=== PATIENT | male | born 1980 | race Caucasian/White ===

== ENCOUNTER 2020-01-24 07:59 | Outpatient (REF) | payer OTHER, SELFPAY ==
[2020-01-24 10:59] LABS: Cholesterol 230 mg/dL; Glucose Fasting 93 mg/dL (60-99); HDL Cholesterol 49 mg/dL; LDL Cholesterol Calculated 164 mg/dl; Triglycerides 86 mg/dL
== END 2020-01-24 08:00 | disposition home or self-care (01) ==
LOC: HO.10HDL 07:59
PROVIDERS: Visit Provider Family Medicine
DX: E78.00 Pure hypercholesterolemia, unspecified (principal); R73.9 Hyperglycemia, unspecified
CPT/HCPCS: 80061; 82947

== ENCOUNTER 2021-04-09 19:41 | Emergency (ER) | payer OTHER, SELFPAY ==
[2021-04-09 19:48] VITALS: BP 132/70; PULSE 68; O2SAT 99
[2021-04-09 20:24] VITALS: BP 135/80; PULSE 80; RESP 18; TEMP 36.9; O2SAT 97; BMI 23.6
--- NOTE | 2021-04-09 20:30 | PC.NURSE ---
pt was given zofran by em[facility]
== END 2021-04-09 21:22 | disposition left against medical advice (07) ==
PROVIDERS: Emergency Provider Emergency Medicine
DX: R10.9 Unspecified abdominal pain (principal); R11.2 Nausea with vomiting, unspecified
CPT/HCPCS: 99282; 99283

== ENCOUNTER 2021-04-11 09:16 | Emergency (ER) | payer OTHER, SELFPAY ==
[2021-04-11 09:35] VITALS: BP 148/93; PULSE 63; RESP 17; TEMP 36.6; O2SAT 98; BMI 24.3
[2021-04-11] MEDS: Ondansetron ODT 4 MG TAB.RAPDIS TRANSLINGU (09:40)
[2021-04-11 11:13] VITALS: BP 143/95; PULSE 55; RESP 16; TEMP 36.5; O2SAT 99
[2021-04-11 11:30] LABS: MANUAL DIFF FLAG NO
[2021-04-11 11:34] LABS: Basophils Percent Auto 0.3 % (0-2); Eosinophils Percent Auto 0.1 % (0-4); Imm Gran Abs Auto 0.05 X10*3/uL (0.00-0.03); Imm Gran Pct Auto 0.4 % (0.0-0.4); Lymphocytes Absolute Auto 0.7 X10*3/uL (1.2-4.9); Lymphocytes Percent Auto 5.6 % (20-40); Mean Corpuscular HGB Conc 34.8 g/dl (31.0-36.0); Mean Corpuscular Hemoglobin 29.9 pg (27.0-33.0); Mean Corpuscular Volume 85.8 fL (80.0-98.0); Mean Platelet Volume 8.8 fL (9.4-12.4); Monocytes Absolute Auto 0.7 X10*3/uL (0.1-1.2); Monocytes Percent Auto 5.3 % (2-11); Neutrophils Absolute Auto 11.7 x10*3/uL (2.0-8.3); Neutrophils Percent Auto 88.3 % (45-73); Platelet Count 250 X10*3/uL (160-400); Red Blood Count 5.36 X10*6/uL (4.60-5.80); Red Cell Distribution Width 12.3 % (11.0-16.0); White Blood Count 13.3 X10*3/uL (4.8-10.8)
--- NOTE | 2021-04-11 11:37 | PC.NURSE ---
a&ox3, vomiting/nausea since friday, no prior hx of similar issue, weakness, chills, headache, abd/esophagus pain (06/26), paper roll machine operator applied, NSR, 20G IV placed right forearm, labs drawn. pending lab results, will continue to monitor.
--- NOTE | 2021-04-11 11:47 | ED_ITS ---
HPI - Nausea/Vomiting/Diarrhea General Chief complaint: Nausea/Vomiting/Diarrhea Stated complaint: Vomiting Time Seen by Provider: 04/11/21 10:42 Source: patient Mode of arrival: ambulatory History of Present Illness HPI Narrative: 40-year-old male with no significant past medical history presenting to the ED complaining of persistent nausea, vomiting/retching x3 days with inability to tolerate p.o. Reports associated abdominal wall soreness from retching. Denies suspicious food intake, fever, chills, dysuria/hematuria, recent travel, flank pain, illicit drug or ETOH use MD elicited complaint: nausea, vomiting and abdominal pain Onset (ago): day(s) Related Data Previous Rx's Medication Instructions Recorded aluminum-mag hydroxide-simethicone 5 ml PO 5XD PRN #30 ml 04/11/21 200 mg-200 mg-20 mg/5 mL oral susp (Maalox Advanced) famotidine 20 mg tablet (Pepcid) 20 mg PO DAILY #14 tab 04/11/21 ondansetron 4 mg disintegrating 4 mg PO Q8H PRN #10 tab 04/11/21 tablet Allergies Allergy/AdvReac Type Severity Reaction Status Date / Time No Known Allergies Allergy Unknown Verified 04/09/21 20:23 Review of Systems Review of Systems: Constitutional: No Fever, No Chills,No Fatigue, No Malaise ENT/Mouth: No Ear Pain, No Nasal Congestion, No sore throat, No Rhinorrhea, No Swallowing Difficulty Eyes: No Eye Pain, No Swelling, No Redness Cardiovascular: No Chest Pain, No SOB, No Dyspnea on Exertion, No Edema, No Palpitations Respiratory: No Cough, No Sputum, No Dyspnea Gastrointestinal: + Nausea, + Vomiting, No Diarrhea, No Constipation, + Abdominal pain Genitourinary: No irregular bleeding, No Dysuria, No Urinary Frequency, No Hematuria, No Urgency, No Flank Pain, No Urinary Flow Changes Musculoskeletal: No joint pain, No Myalgias, No Joint Swelling Skin: No Skin Lesions, No rash Neuro: No Weakness, No Numbness, No Dizziness, No Headache Yes all other systems are reviewed and are negative [facility] Past Medical History Attestation statement: The following information was validated with the patient. Medical History No pertinent past medical history Social History Social History Patient Tobacco Use Status: Current everyday Tobacco user Smoked in Last 30 Days: Yes Use of substances other than those prescribed or required for medical reasons: Yes Substance Use Type: Heroin and Marijuana Substance Use Type Other:: Formerly used heroin, hasn't used for 3 yrs, smokes marijuana Substance Use Frequency: Daily Last Used Substance: Just Prior to Admission Any prior treatment program specific to substance use: Yes (Yes, previously been to treatment center.) Advance Directives: No Advance Directives Information Provided: No Physical Exam Vital Signs: Vital Signs: Last Vital Signs Temp 98.3 F 04/11/21 16:00 Pulse 59 04/11/21 16:00 Resp 16 04/11/21 16:00 BP 145/85 H 04/11/21 16:00 Pulse Ox 97 04/11/21 16:00 BMI result Body Mass Index 24.3 Const: General: cooperative, healthy appearing, no acute distress, alert and awake Orientation/consciousness: patient oriented x3 Limitations: no limitations HENMT: Head: Yes normal to inspection and Yes atraumatic Ears: hearing grossly normal bilaterally General nose exam: Normal external nose present Face and sinus: Yes normal facial exam Eyes: General: appearance normal, both eyes and all related structures EOM: EOMs intact bilaterally Neck: Neck: Yes normal visual inspection and Yes no meningeal signs Resp: Effort & Inspection: normal respiratory effort and no respiratory distress Auscultation: clear to auscultation bilaterally Cardio: Rate: regular rate Heart sounds: S1 normal heart sound present and S2 normal heart sound present GI: Inspection: Yes normal to inspection Palpation (GI): Soft to palpation, nontender, no guarding and not rigid : General: Yes no CVA tenderness Back/Spine/Pelvis: Back: no CVA tenderness Skin: Rashes: no rashes Wounds: no wounds Neuro: General: patient oriented x3 and no meningeal signs Gait exam (Neuro): Normal gait present Extrem: General: Yes normal to inspection Course Course Course Narrative: -1202--mild leukocytosis of 13.3 > likely reactive from nausea/vomiting. BUN elevated to 24 likely from dehydration -AST/ ALT mildly elevated -1255--UA with greater than 80 ketones/not infected. Tox screen positive for THC. On re-evaluation patient reports symptomatic improvement, tolerating p.o. apple juice, will try cracker/Gingre pedro and re-evaluate -1358--patient tolerated p.o. cracker however followed by episode of emesis. IM Haldol ordered -1556--on re-evaluation patient reports symptomatic improvement in, admits to mild persistent nausea. Tolerated p.o. crackers without emesis. Discussed disposition, patient does feel safer DC home, will give p.o. Bentyl, IV Zofran and Toradol, re-evaluated and plan for discharge -1640--on re-evaluation patient reports symptomatic improvement, no nausea or vomiting at present. Plan for DC home MDM - Nausea/Vomiting/Diarrhea MDM Narrative Medical decision making narrative: 40-year-old male with no significant past medical history presenting to the ED complaining of persistent nausea, vomiting/retching x3 days with inability to tolerate p.o. on exam vital signs stable, NAD/nontoxic appearing, abdomen s oft/nontender, no rebound or guarding, no CVAT. Concern for cyclical vomiting vs gastroenteritis/food poisoning vs colitis. Rule out metabolic abnormalities Plan: Labs, UA, IVF, symptomatic remedies, p.o. challenge, re-evaluate Differential Diagnosis Differential diagnosis: Likely food poisoning, gastroenteritis, drug-induced nausea and vomiting and dehydration Medical Records Attestation: I reviewed the patient's medical records. Lab Data Attestation: I reviewed the patient's lab results. Result diagrams: 04/11/21 11:27 04/11/21 11:27 Labs: Lab Results 04/11/21 04/11/21 04/11/21 Range/Units 11:27 11:27 11:27 WBC 13.3 H (4.8-10.8) X10*3/uL RBC 5.36 (4.60-5.80) X10*6/uL Hgb 16.0 (14.0-18.0) g/dl Hct 46.0 (42.0-52.0) % MCV 85.8 (80.0-98.0) fL MCH 29.9 (27.0-33.0) pg MCHC 34.8 (31.0-36.0) g/dl RDW 12.3 (11.0-16.0) % Plt Count 250 (160-400) X10*3/uL MPV 8.8 L (9.4-12.4) fL Immature Gran % (Auto) 0.4 (0.0-0.4) % Neut % (Auto) 88.3 H (45-73) % Lymph % (Auto) 5.6 L (20-40) % [place] % (Auto) 5.3 (2-11) % Eos % (Auto) 0.1 (0-4) % Baso % (Auto) 0.3 (0-2) % Lymph # (Auto) 0.7 L (1.2-4.9) X10*3/uL [place] # (Auto) 0.7 (0.1-1.2) X10*3/uL Eos # (Auto) 0.0 (0.0-0.4) X10*3/uL Baso # (Auto) 0.0 (0.0-0.2) X10*3/uL Abs Immat Gran (auto) 0.05 H (0.00-0.03) X10*3/uL Absolute Neuts (auto) 11.7 H (2.0-8.3) x10*3/uL Absolute Nucleated RBC 0.000 (0.0-0.012) X10*3/uL Nucleated RBC % (auto) 0.0 (0.0-0.2) /100WBC Sodium 136 (135-145) mmol/L Potassium 4.4 (3.3-5.1) mmol/L Chloride 95 L (96-108) mmol/L Carbon Dioxide 30 H (22-29) mmol/L Anion Gap 15 (12-20) BUN 24 H (9-16) mg/dL Creatinine 1.21 (0.5-1.4) mg/dL Estim Creat Clear Calc 82.7 Estimated GFR > 60 Random Glucose 135 H (60-115) mg/dL Calcium 10.4 H (8.4-10.2) mg/dL Magnesium 2.1 (1.6-2.6) mg/dL Total Bilirubin 1.4 H (0.0-1.0) mg/dL Direct Bilirubin 0.4 (0.0-0.5) mg/dL AST 38 H (5-37) U/L ALT 47 H (0-40) U/L Alkaline Phosphatase 77 (39-117) U/L Total Protein 7.9 (6.5-8.0) g/dL Albumin 4.9 (3.5-5.0) g/dL Lipase 21 (8-78) U/L Urine Color Urine Appearance Urine pH (5.0-8.0) Ur Specific [place] (1.005-1.025) Urine Protein (NEG-TRACE) MG/DL Urine Glucose (UA) (NEG) MG/DL Urine Ketones (NEG) MG/DL Urine Blood (NEG) Urine Nitrite (NEG) Ur Leukocyte Esterase (NEG) Urine Opiates Screen (Not Detect) Urine Fentanyl Screen (Not Detect) Ur Barbiturates Screen (Not Detect) Ur Phencyclidine Scrn (Not Detect) Ur Amphetamines Screen (Not Detect) U Benzodiazepines Scrn (Not Detect) Urine Cocaine Screen (Not Detect) U Marijuana (THC) Screen (Not Detect) COVID-19 (RED) Negative (Negative) COVID-19 Clin Com See Note 04/11/21 04/11/21 Range/Units 12:06 12:06 WBC (4.8-10.8) X10*3/uL RBC (4.60-5.80) X10*6/uL Hgb (14.0-18.0) g/dl Hct (42.0-52.0) % MCV (80.0-98.0) fL MCH (27.0-33.0) pg MCHC (31.0-36.0) g/dl RDW (11.0-16.0) % Plt Count (160-400) X10*3/uL MPV (9.4-12.4) fL Immature Gran % (Auto) (0.0-0.4) % Neut % (Auto) (45-73) % Lymph % (Auto) (20-40) % [place] % (Auto) (2-11) % Eos % (Auto) (0-4) % Baso % (Auto) (0-2) % Lymph # (Auto) (1.2-4.9) X10*3/uL [place] # (Auto) (0.1-1.2) X10*3/uL Eos # (Auto) (0.0-0.4) X10*3/uL Baso # (Auto) (0.0-0.2) X10*3/uL Abs Immat Gran (auto) (0.00-0.03) X10*3/uL Absolute Neuts (auto) (2.0-8.3) x10*3/uL Absolute Nucleated RBC (0.0-0.012) X10*3/uL Nucleated RBC % (auto) (0.0-0.2) /100WBC Sodium (135-145) mmol/L Potassium (3.3-5.1) mmol/L Chloride (96-108) mmol/L Carbon Dioxide (22-29) mmol/L Anion Gap (12-20) BUN (9-16) mg/dL Creatinine (0.5-1.4) mg/dL Estim Creat Clear Calc Estimated GFR Random Glucose (60-115) mg/dL Calcium (8.4-10.2) mg/dL Magnesium (1.6-2.6) mg/dL Total Bilirubin (0.0-1.0) mg/dL Direct Bilirubin (0.0-0.5) mg/dL AST (5-37) U/L ALT (0-40) U/L Alkaline Phosphatase (39-117) U/L Total Protein (6.5-8.0) g/dL Albumin (3.5-5.0) g/dL Lipase (8-78) U/L Urine Color YELLOW Urine Appearance CLEAR Urine pH 7.5 (5.0-8.0) Ur Specific [place] 1.020 (1.005-1.025) Urine Protein TRACE (NEG-TRACE) MG/DL Urine Glucose (UA) NEG (NEG) MG/DL Urine Ketones >=80 (NEG) MG/DL Urine Blood NEG (NEG) Urine Nitrite NEG (NEG) Ur Leukocyte Esterase NEG (NEG) Urine Opiates Screen Not Detected (Not Detect) Urine Fentanyl Screen Not Detected (Not Detect) Ur Barbiturates Screen Not Detected (Not Detect) Ur Phencyclidine Scrn Not Detected (Not Detect) Ur Amphetamines Screen Not Detected (Not Detect) U Benzodiazepines Scrn Not Detected (Not Detect) Urine Cocaine Screen Not Detected (Not Detect) U Marijuana (THC) Screen POSITIVE H (Not Detect) COVID-19 (RED) (Negative) COVID-19 Clin Com Discharge Plan Discharge Clinical Impression: Cyclical vomiting Patient Disposition: Home, Self-Care Instructions: Acute Nausea and Vomiting (ED) Additional Instructions: Your blood work shows mild elevation in her liver enzymes. Her symptoms are likely from marijuana use, you should refrain from using THC Zofran as an antinausea medication, take as needed Pepcid and Maalox will help with acid reduction Please stay hydrated at home. If symptoms persist or worsen, you have unbearable pain/nausea, continued nausea and vomiting with inability to tolerate food or liquid foods return to the emergency department Please follow-up with your doctor Prescriptions: New famotidine [Pepcid] 20 mg tablet 20 mg PO DAILY Qty: 14 0RF alum-mag hydroxide-simeth [Maalox Advanced] 200-200-20 mg/5 mL suspension 5 ml PO 5XD PRN (Reason: dyspepsia) Qty: 30 0RF Rx Instructions: administer between meals and at bedtime ondansetron 4 mg tablet,disintegrating 4 mg PO Q8H PRN (Reason: nausea and vomiting) Qty: 10 0RF Referrals: Ryan lEy [Physician] - 1 week Chris Ordoñez MD [Primary Care Provider] - 2 days
[2021-04-11 11:48] LABS: Alanine Aminotransferase 47 U/L (0-40); Albumin Level 4.9 g/dL (3.5-5.0); Alkaline Phosphatase 77 U/L (39-117); Anion Gap 15 (12-20); Aspartate Amino Transferase 38 U/L (5-37); Bilirubin Direct 0.4 mg/dL (0.0-0.5); Bilirubin Total 1.4 mg/dL (0.0-1.0); Blood Urea Nitrogen 24 mg/dL (9-16); COVID-19 Test Negative (Negative); Calcium 10.4 mg/dL (8.4-10.2); Carbon Dioxide 30 mmol/L (22-29); Chloride 95 mmol/L (96-108); Creatinine Clr Calc Pharmacy 82.7; Estimated Glomerular Filt Rate > 60; Glucose Random 135 mg/dL (60-115); Lipase 21 U/L (8-78); Magnesium 2.1 mg/dL (1.6-2.6); Potassium 4.4 mmol/L (3.3-5.1); Sodium 136 mmol/L (135-145); Total Protein 7.9 g/dL (6.5-8.0)
[2021-04-11] MEDS: Magnesium Hydrox/Alum Hydrox 30 ML ORAL.SUSP PO (11:59)
[2021-04-11] MEDS: Lidocaine HCl Viscous 2 % 15 ML SOLUTION MUCOUS MEM (11:59)
[2021-04-11] MEDS: 0.9 % Sodium Chloride 1,000 ML 999 ML IV ×2 (11:59→12:49)
[2021-04-11] MEDS: diphenhydrAMINE HCL 50 MG/ML VIAL 25 MG IVPUSH (11:59)
[2021-04-11] MEDS: Famotidine/PF 20 MG/2 ML VIAL IVPUSH (12:00)
[2021-04-11] MEDS: Metoclopramide HCl 10 MG/2 ML VIAL IVPUSH (12:00)
[2021-04-11 12:02] VITALS: BP 143/95; PULSE 73; RESP 16; O2SAT 99
[2021-04-11 12:22] LABS: Appearance Urine CLEAR; Color Urine YELLOW; Glucose Urine UA NEG (NEG); Leukocyte Esterase Urine NEG (NEG); Nitrite Urine NEG (NEG); PH 7.5 (5.0-8.0); Urine Blood NEG (NEG); Urine Ketones >=80 MG/DL (NEG); Urine Protein TRACE MG/DL (NEG-TRACE)
[2021-04-11 12:30] LABS: Amphetamine Screen Urine Not Detected (Not Detect); Barbiturates, Urine Not Detected (Not Detect); Benzodiazepines Screen Urine Not Detected (Not Detect); Cannabinoid Screen Urine POSITIVE (Not Detect); Cocaine Screen Urine Not Detected (Not Detect); Fentanyl, urine Not Detected (Not Detect); Opiate Screen Urine Not Detected (Not Detect); Phencyclidine Screen Urine Not Detected (Not Detect)
--- NOTE | 2021-04-11 12:48 | PC.NURSE ---
nausea improved w meds, pain decreased to 2/10, medicated per provider order, NSR on monitor.
[2021-04-11 14:00] VITALS: BP 132/96; PULSE 51; RESP 16; O2SAT 99
[2021-04-11] MEDS: Haloperidol Lactate 5 MG/ML VIAL IM (14:30)
--- NOTE | 2021-04-11 14:35 | PC.NURSE ---
Pt continues to vomit, medicated as charted. States pain currently 5/10, sinus mariama on tele. Fluids continues to infuse.
[2021-04-11 16:00] VITALS: BP 145/85; PULSE 59; RESP 16; TEMP 36.8; O2SAT 97
[2021-04-11] MEDS: Dicyclomine HCl 10 MG CAPSULE 20 MG PO (16:19)
[2021-04-11] MEDS: ondansetron HCL 4 MG/2 ML VIAL IVPUSH (16:20)
[2021-04-11] MEDS: Ketorolac Tromethamine 15 MG/ML VIAL IVPUSH (16:21)
== END 2021-04-11 17:04 | disposition home or self-care (01) ==
PROVIDERS: Physician Assistant; Emergency Provider Internal Medicine; PCP Family Medicine
DX: R11.15 Cyclical vomiting syndrome unrelated to migraine (principal); F12.90 Cannabis use, unspecified, uncomplicated; R10.9 Unspecified abdominal pain; Z20.822 Contact with and (suspected) exposure to COVID-19; F17.200 Nicotine dependence, unspecified, uncomplicated
CPT/HCPCS: 36415; 80048; 80076; 80307; 81003; 83690; 83735; 85025; 87635; 96361; 96372; 96374; 96375; 96376; 99284; 99285; J1200; J1885; J2405; J2765

== ENCOUNTER 2022-01-22 08:50 | Outpatient (REF) | payer OTHER, SELFPAY ==
[2022-01-22 12:29] LABS: Alanine Aminotransferase 24 U/L (0-40); Albumin Level 4.2 g/dL (3.5-5.0); Alkaline Phosphatase 70 U/L (39-117); Aspartate Amino Transferase 26 U/L (5-37); Bilirubin Direct 0.2 mg/dL (0.0-0.5); Bilirubin Total 0.7 mg/dL (0.0-1.0); Calcium 9.6 mg/dL (8.4-10.2); Cholesterol 216 mg/dL; Glucose Fasting 95 mg/dL (60-99); HDL Cholesterol 43 mg/dL; LDL Cholesterol Calculated 148 mg/dl; Total Protein 6.9 g/dL (6.5-8.0); Triglycerides 126 mg/dL
== END 2022-01-22 08:51 | disposition home or self-care (01) ==
LOC: HO.10HDL 08:50
PROVIDERS: Visit Provider Family Medicine
DX: E78.00 Pure hypercholesterolemia, unspecified (principal); R73.9 Hyperglycemia, unspecified; E83.52 Hypercalcemia
CPT/HCPCS: 36415; 80061; 80076; 82310; 82947

== ENCOUNTER 2022-07-11 05:38 | Emergency (ER) | payer OTHER, SELFPAY ==
[2022-07-11 05:39] VITALS: BP 146/92; PULSE 53; RESP 18; TEMP 36.1; O2SAT 99; BMI 21.7
--- NOTE | 2022-07-11 07:23 | ED.NAVMDI ---
HPI - Nausea/Vomiting/Diarrhea General Chief complaint: Nausea/Vomiting/Diarrhea Stated complaint: vomiting Time Seen by Provider: 07/11/22 07:23 Source: patient Mode of arrival: ambulatory Limitations: no limitations History of Present Illness HPI Narrative: 41 yo male with history of substance abuse on Suboxone, marijuana use who presents to the ER for evaluation of nausea and vomiting for the last 2 days. He denies any associated abdominal pain but has an upset stomach and decreased appetite. He states whenever he tries to eat or drink anything it comes back up. He denies any diarrhea. No known sick contacts or food bourne illness exposures. He lives with his significant other who does not have any symptoms. He states he frequently uses marijuana but has no history of cyclical vomiting. He has been able to take his Suboxone during the last couple of days. He is a former drinker, no current alcohol use. MD elicited complaint: nausea and vomiting Onset (ago): day(s) (2) Related Data Previous Rx's Medication Instructions Recorded aluminum-mag hydroxide-simethicone 5 ml PO 5XD PRN dyspepsia #30 mL 04/11/21 200 mg-200 mg-20 mg/5 mL oral susp (Maalox Advanced) famotidine 20 mg tablet (Pepcid) 20 mg PO DAILY #14 tabs 04/11/21 ondansetron 4 mg disintegrating 4 mg PO Q8H PRN nausea and 04/11/21 tablet vomiting #10 tabs prochlorperazine maleate 10 mg 10 mg PO Q8H PRN nausea and 07/11/22 tablet (Compazine) vomiting #10 tabs Allergies Allergy/AdvReac Type Severity Reaction Status Date / Time No Known Allergies Allergy Unknown Verified 04/09/21 20:23 [facility] Past Medical History Medical History No pertinent past medical history Social History Social History Alcohol intake: never Patient Tobacco Use Status: Current everyday Tobacco user Smoked in Last 30 Days: No Use of substances other than those prescribed or required for medical reasons: No Substance Use Type: Heroin and Marijuana Advance Directives: No Advance Directives Information Provided: No Physical Exam Vital Signs: Vital Signs: Last Vital Signs Temp 97 F 07/11/22 05:39 Pulse 114 H 07/11/22 08:39 Resp 18 07/11/22 08:39 BP 155/99 H 07/11/22 08:39 Pulse Ox 99 07/11/22 08:39 O2 Del Method Room Air 07/11/22 08:39 BMI result Body Mass Index 21.7 Appearance: Alert. Oriented X3. No acute distress. Head: normocephalic, atraumatic. Eyes: Pupils equal, round and reactive to light. ENT: Pharynx with dry mucous membranes. No tonsillar swelling or exudate. Neck: Normal inspection. Neck supple. CVS: Normal heart rate and rhythm. Pulses normal. Respiratory: No respiratory distress. Breath sounds normal. Abdomen: Soft with mild epigastric tenderness, negative Castanon sign.. +BS x4 Skin: Skin warm and dry. Normal skin color. Normal skin turgor. No rashes. Extremities: No lower extremity edema. No joint swelling. Neuro/psych: Oriented X 3. No motor deficit. No sensory deficit. CN II-XII intact. Normal speech and cognition. Steady gait Course Reevaluation(s) Reevaluation #1: Patient dry heaving after receiving Zofran. Additional IV fluids and antiemetics have been ordered. Lab workup is essentially unremarkable, urinalysis is pending. Time: 09:05 Reevaluation #2: Patient positive for marijuana. He is feeling much better after Compazine. He is tolerating cordell pedro. At this time is stable for discharge home with antiemetics, supportive care, cessation of marijuana use. Patient agrees with plan. Stable for discharge. Time: 11:15 Medications Administered Discontinued Medications Generic Name Dose Route Start Last Admin Trade Name Freq PRN Reason Stop Dose Admin Sodium Chloride 1,000 mls @ 999 mls/hr 07/11/22 07:30 07/11/22 08:53 Ns IVCONT 07/11/22 08:30 Infused .Q1H1M EMELY Infusion Sodium Chloride 1,000 mls @ 999 mls/hr 07/11/22 08:45 07/11/22 10:05 Ns IVCONT 07/11/22 09:45 Infused .Q1H1M EMELY Infusion Ondansetron HCl 4 mg 07/11/22 07:23 07/11/22 07:58 Ondansetron Hcl 4 Mg/2 Ml Vial IVPUSH 07/11/22 07:24 4 mg ONCE ONE Administration Prochlorperazine Edisylate 10 mg 07/11/22 08:43 07/11/22 08:53 Prochlorperazine Edisylate 10 Mg/2 Ml Vial IVPUSH 07/11/22 08:44 10 mg ONCE ONE Administration Medical Decision Making Medical Decision Making [facility] Narrative: 41-year-old male with history of substance abuse on Suboxone, marijuana use who is presenting to the ER for evaluation of nausea and vomiting for the last 2 days, unable to tolerate any p.o.. No abdominal pain just upset stomach. He does have mild epigastric tenderness on exam, likely gastritis. His lab work today is unremarkable, mild leukocytosis likely reactive due to vomiting. His lipase and LFTs are normal. His U tox was positive for marijuana. Could be experiencing cyclical vomiting verses a gastroenteritis however he has no diarrhea. He was counseled on his results, recommendation of cessation of marijuana. He was given 2 L of IV fluids and eventually able to tolerate p.o. after several hours of resuscitation and supportive care in the ER. Patient comfortable discharge home and return precautions were discussed. Differential Diagnosis Differential Diagnoses: The differential diagnosis associated with the presentation includes Viral gastroenteritis, bacterial gastroenteritis, cyclical vomiting, bowel obstruction, pancreatitis Admission/Observation Consideration of admission/observation: Escalation of care including admission/observation considered multiple doses of antiemetics and 2 L of IV fluids for required Lab Data [facility] Lab Attestation statement: I reviewed the patient's lab results. 07/11/22 07:24 07/11/22 07:24 Labs: Lab Results 07/11/22 07/11/22 07/11/22 Range/Units 07:24 07:24 09:37 WBC 11.9 H (4.8-10.8) X10*3/uL RBC 5.72 (4.60-5.80) X10*6/uL Hgb 15.5 (14.0-18.0) g/dl Hct 46.6 (42.0-52.0) % MCV 81.5 (80.0-98.0) fL MCH 27.1 (27.0-33.0) pg MCHC 33.3 (31.0-36.0) g/dl RDW 14.1 (11.0-16.0) % Plt Count 316 D (160-400) X10*3/uL MPV 8.7 L (9.4-12.4) fL Immature Gran % (Auto) 0.3 (0.0-0.4) % Neut % (Auto) 83.9 H (45-73) % Lymph % (Auto) 11.4 L (20-40) % [facility] % (Auto) 3.8 (2-11) % Eos % (Auto) 0.3 (0-4) % Baso % (Auto) 0.3 (0-2) % Lymph # (Auto) 1.4 (1.2-4.9) X10*3/uL [facility] # (Auto) 0.5 (0.1-1.2) X10*3/uL Eos # (Auto) 0.0 (0.0-0.4) X10*3/uL Baso # (Auto) 0.0 (0.0-0.2) X10*3/uL Abs Immat Gran (auto) 0.04 H (0.00-0.03) X10*3/uL Absolute Neuts (auto) 10.0 H (2.0-8.3) x10*3/uL Absolute Nucleated RBC 0.000 (0.0-0.012) X10*3/uL Nucleated RBC % (auto) 0.0 (0.0-0.2) /100WBC Sodium 139 (135-145) mmol/L Potassium 4.2 (3.3-5.1) mmol/L Chloride 101 (96-108) mmol/L Carbon Dioxide 27 (22-29) mmol/L Anion Gap 15 (12-20) BUN 19 H (9-16) mg/dL Creatinine 0.97 (0.5-1.4) mg/dL Estim Creat Clear Calc 104.9 Estimated GFR > 60 Random Glucose 142 H (60-115) mg/dL Calcium 9.9 (8.4-10.2) mg/dL Total Bilirubin 0.9 (0.0-1.0) mg/dL Direct Bilirubin 0.2 (0.0-0.5) mg/dL AST 16 (5-37) U/L ALT 15 (0-40) U/L Alkaline Phosphatase 91 (39-117) U/L Total Protein 8.0 (6.5-8.0) g/dL Albumin 4.8 (3.5-5.0) g/dL Lipase 19 (8-78) U/L Urine Color Yellow Urine Appearance Cloudy Urine pH 7.5 (5.0-9.0) Ur Specific [place] >= 1.030 H (1.005-1.025) Urine Protein 30 (1+) H (Neg-Trace) mg/dL Urine Glucose (UA) Negative (Negative) mg/dL Urine Ketones 40 (Negative) mg/dL Urine Blood Negative (Negative) Urine Nitrite Negative (Negative) Ur Leukocyte Esterase Negative (Negative) Urine RBC 3-5 H (0-2) /HPF Urine WBC 0-5 (0-5) /HPF Ur Squamous Epith Cells 0-2 (0-2) /HPF Urine Bacteria None Seen (None Seen) Hyaline Casts 0-2 (0-2) /LPF Urine Opiates Screen (Not Detect) Urine Fentanyl Screen (Not Detect) Ur Barbiturates Screen (Not Detect) Ur Phencyclidine Scrn (Not Detect) Ur Amphetamines Screen (Not Detect) U Benzodiazepines Scrn (Not Detect) Urine Cocaine Screen (Not Detect) U Marijuana (THC) Screen (Not Detect) 07/11/22 Range/Units 09:37 WBC (4.8-10.8) X10*3/uL RBC (4.60-5.80) X10*6/uL Hgb (14.0-18.0) g/dl Hct (42.0-52.0) % MCV (80.0-98.0) fL MCH (27.0-33.0) pg MCHC (31.0-36.0) g/dl RDW (11.0-16.0) % Plt Count (160-400) X10*3/uL MPV (9.4-12.4) fL Immature Gran % (Auto) (0.0-0.4) % Neut % (Auto) (45-73) % Lymph % (Auto) (20-40) % [facility] % (Auto) (2-11) % Eos % (Auto) (0-4) % Baso % (Auto) (0-2) % Lymph # (Auto) (1.2-4.9) X10*3/uL [facility] # (Auto) (0.1-1.2) X10*3/uL Eos # (Auto) (0.0-0.4) X10*3/uL Baso # (Auto) (0.0-0.2) X10*3/uL Abs Immat Gran (auto) (0.00-0.03) X10*3/uL Absolute Neuts (auto) (2.0-8.3) x10*3/uL Absolute Nucleated RBC (0.0-0.012) X10*3/uL Nucleated RBC % (auto) (0.0-0.2) /100WBC Sodium (135-145) mmol/L Potassium (3.3-5.1) mmol/L Chloride (96-108) mmol/L Carbon Dioxide (22-29) mmol/L Anion Gap (12-20) BUN (9-16) mg/dL Creatinine (0.5-1.4) mg/dL Estim Creat Clear Calc Estimated GFR Random Glucose (60-115) mg/dL Calcium (8.4-10.2) mg/dL Total Bilirubin (0.0-1.0) mg/dL Direct Bilirubin (0.0-0.5) mg/dL AST (5-37) U/L ALT (0-40) U/L Alkaline Phosphatase (39-117) U/L Total Protein (6.5-8.0) g/dL Albumin (3.5-5.0) g/dL Lipase (8-78) U/L Urine Color Urine Appearance Urine pH (5.0-9.0) Ur Specific [place] (1.005-1.025) Urine Protein (Neg-Trace) mg/dL Urine Glucose (UA) (Negative) mg/dL Urine Ketones (Negative) mg/dL Urine Blood (Negative) Urine Nitrite (Negative) Ur Leukocyte Esterase (Negative) Urine RBC (0-2) /HPF Urine WBC (0-5) /HPF Ur Squamous Epith Cells (0-2) /HPF Urine Bacteria (None Seen) Hyaline Casts (0-2) /LPF Urine Opiates Screen Not Detected (Not Detect) Urine Fentanyl Screen Not Detected (Not Detect) Ur Barbiturates Screen Not Detected (Not Detect) Ur Phencyclidine Scrn Not Detected (Not Detect) Ur Amphetamines Screen Not Detected (Not Detect) U Benzodiazepines Scrn Not Detected (Not Detect) Urine Cocaine Screen Not Detected (Not Detect) U Marijuana (THC) Screen POSITIVE H (Not Detect) Independent Historian Clinical information obtained from an independent historian. History obtained from or confirmed by: Spouse External Record Review External record reviewed: Outpatient record, Prior outpatient labs and Prior outpatient radiology Tests considered The following testing was considered but not selected: CT scan of the abdomen considered however deferred given normal lab work and benign examination. Prescription Management I considered prescription management with: Other (antiemetic) Chronic Conditions Patient?s care impacted by: Other (substance abuse, marijuana use) Social Determinants Patient?s care significantly limited by Social Determinants of Health including: Alcoholism and drug addiction in family Critical Care Time Critical Care Time Critical Care Time: Yes Total Critical Care Time: 35 Attestation: I have personally provided critical care time exclusive of time spent on separately billable procedures. Time includes review of lab data, radiology results, discussion with consultants, and monitoring for potential decompensation. Intervention performed as documented. Discharge Plan Discharge Clinical Impression: Nausea & vomiting Patient Disposition: Home, Self-Care Instructions: Acute Nausea and Vomiting (ED) Additional Instructions: Your lab workup today was unremarkable. Her vomiting may be due to a viral gastroenteritis verses and affect from smoking marijuana. Recommend refraining from marijuana use. Stick to a bland diet where not feeling well. Take the prescribed nausea medication as needed. Recommend [id number] Pepto-Bismol as needed for upset stomach. Follow-up with your doctor. If you develop new or worsening symptoms call 911 or come back to the ER for further evaluation. Prescriptions: New prochlorperazine maleate [Compazine] 10 mg tablet 10 mg PO Q8H PRN (Reason: nausea and vomiting) Qty: 10 0RF No Action famotidine [Pepcid] 20 mg tablet 20 mg PO DAILY Qty: 14 0RF alum-mag hydroxide-simeth [Maalox Advanced] 200-200-20 mg/5 mL suspension 5 ml PO 5XD PRN (Reason: dyspepsia) Qty: 30 0RF Rx Instructions: administer between meals and at bedtime ondansetron 4 mg tablet,disintegrating 4 mg PO Q8H PRN (Reason: nausea and vomiting) Qty: 10 0RF Referrals: Chris Ordoñez MD [Primary Care Provider] -
[2022-07-11 07:32] LABS: MANUAL DIFF FLAG NO
[2022-07-11 07:33] LABS: Basophils Percent Auto 0.3 % (0-2); Eosinophils Percent Auto 0.3 % (0-4); Hematocrit 46.6 % (42.0-52.0); Hemoglobin 15.5 g/dl (14.0-18.0); Imm Gran Abs Auto 0.04 X10*3/uL (0.00-0.03); Imm Gran Pct Auto 0.3 % (0.0-0.4); Lymphocytes Absolute Auto 1.4 X10*3/uL (1.2-4.9); Lymphocytes Percent Auto 11.4 % (20-40); Mean Corpuscular HGB Conc 33.3 g/dl (31.0-36.0); Mean Corpuscular Hemoglobin 27.1 pg (27.0-33.0); Mean Corpuscular Volume 81.5 fL (80.0-98.0); Mean Platelet Volume 8.7 fL (9.4-12.4); Monocytes Absolute Auto 0.5 X10*3/uL (0.1-1.2); Monocytes Percent Auto 3.8 % (2-11); Neutrophils Percent Auto 83.9 % (45-73); Platelet Count 316 X10*3/uL (160-400); Red Blood Count 5.72 X10*6/uL (4.60-5.80); Red Cell Distribution Width 14.1 % (11.0-16.0); White Blood Count 11.9 X10*3/uL (4.8-10.8)
[2022-07-11 07:36] VITALS: BP 154/92; PULSE 114; RESP 18; O2SAT 99
--- NOTE | 2022-07-11 07:41 | PC.NURSE ---
Alert and oriented. Arrived from home after n/v since fri. States no current abdominal pain just continuous vomiting that has left him fatigued. States takes saboxon and gabapentin for anxiety. States some weed. States this has happeend to him once before about a year ago. States BM yesterday of normal consistency. Positive bowel sounds x 4.
[2022-07-11] MEDS: 0.9 % Sodium Chloride 1,000 ML 999 ML IVCONT ×2 (07:51→08:53)
[2022-07-11] MEDS: ondansetron HCL 4 MG/2 ML VIAL IVPUSH (07:58)
[2022-07-11 08:04] LABS: Alanine Aminotransferase 15 U/L (0-40); Albumin Level 4.8 g/dL (3.5-5.0); Alkaline Phosphatase 91 U/L (39-117); Anion Gap 15 (12-20); Aspartate Amino Transferase 16 U/L (5-37); Bilirubin Direct 0.2 mg/dL (0.0-0.5); Bilirubin Total 0.9 mg/dL (0.0-1.0); Blood Urea Nitrogen 19 mg/dL (9-16); Calcium 9.9 mg/dL (8.4-10.2); Carbon Dioxide 27 mmol/L (22-29); Chloride 101 mmol/L (96-108); Creatinine Clr Calc Pharmacy 104.9; Estimated Glomerular Filt Rate > 60; Glucose Random 142 mg/dL (60-115); Lipase 19 U/L (8-78); Potassium 4.2 mmol/L (3.3-5.1); Sodium 139 mmol/L (135-145)
[2022-07-11 08:39] VITALS: BP 155/99; PULSE 114; RESP 18; O2SAT 99
[2022-07-11] MEDS: Prochlorperazine Edisylate 10 MG/2 ML VIAL IVPUSH (08:53)
--- NOTE | 2022-07-11 08:53 | PC.NURSE ---
Pt vomiting, additional fluid bolus started and medicated as charted
[2022-07-11 09:49] LABS: Appearance Urine Cloudy; Color Urine Yellow; Glucose Urine UA Negative (Negative); Leukocyte Esterase Urine Negative (Negative); Nitrite Urine Negative (Negative); PH 7.5 (5.0-9.0); Specific Gravity - Urine >= 1.030 (1.005-1.025); UMIC TRIGGER UACC YES; Urine Blood Negative (Negative); Urine Ketones 40 mg/dL (Negative); Urine Protein 30 (1+) mg/dL (Neg-Trace)
[2022-07-11 09:51] LABS: Bacteria Urine None Seen (None Seen); Hyaline Casts Urine 0-2 /LPF (0-2); Squamous Epithelial Cell Urine 0-2 /HPF (0-2); WBC Urine 0-5 /HPF (0-5)
[2022-07-11 10:05] LABS: Amphetamine Screen Urine Not Detected (Not Detect); Barbiturates, Urine Not Detected (Not Detect); Benzodiazepines Screen Urine Not Detected (Not Detect); Cannabinoid Screen Urine POSITIVE (Not Detect); Cocaine Screen Urine Not Detected (Not Detect); Fentanyl, urine Not Detected (Not Detect); Opiate Screen Urine Not Detected (Not Detect); Phencyclidine Screen Urine Not Detected (Not Detect)
== END 2022-07-11 11:36 | disposition home or self-care (01) ==
PROVIDERS: Physician Assistant; Emergency Provider Emergency Medicine; PCP Family Medicine
DX: R11.2 Nausea with vomiting, unspecified (principal); F12.920 Cannabis use, unspecified with intoxication, uncomplicated; F17.200 Nicotine dependence, unspecified, uncomplicated; Z71.6 Tobacco abuse counseling; Z79.899 Other long term (current) drug therapy
CPT/HCPCS: 36415; 80048; 80076; 80307; 81001; 83690; 85025; 96361; 96374; 96375; 99284; J2405

== ENCOUNTER 2022-07-28 14:08 | Emergency (ER) | payer OTHER, SELFPAY ==
[2022-07-28 14:23] VITALS: BP 160/93; PULSE 48; RESP 18; TEMP 36.7; O2SAT 98; BMI 23.6
--- NOTE | 2022-07-28 14:25 | ED_ITS ---
HPI - General Adult General Chief complaint: Abdominal Pain Stated complaint: vomiting Time Seen by Provider: 07/28/22 18:09 Source: patient Mode of arrival: ambulatory Limitations: no limitations History of Present Illness HPI narrative: 41 yo male with history of OUD on suboxone, daily marijuana use, appendectomy here with complaints of diarrhea x1, vomiting multiple episodes which began today. Vomiting is bilous, nonbloody. Stools non bloody. Here with complaints of epigastric pain cramping, constant. No fevers, urinary symptoms. +Chills. Patient has had similar episodes in the past. Smokes marijuana daily but feels this makes his symptoms worse. No alcohol use Patient reports had similar episodes in the past over the last 3 years. His last episode was 1 month ago which necessitated an emergency room visit. patient reports he has never been seen by GI before Related Data Previous Rx's Medication Instructions Recorded omeprazole 20 mg capsule,delayed 20 mg PO BID #60 caps 08/01/22 release Allergies Allergy/AdvReac Type Severity Reaction Status Date / Time No Known Allergies Allergy Unknown Verified 04/09/21 20:23 Review of Systems Review of Systems: Yes all other systems are reviewed and are negative Constitutional: Constitutional: Reports no additional constitutional complaints, Denies body ache(s), Denies chills, Denies fever(s), Denies headache(s) and Denies weakness Eyes: Eyes: Reports no additional eye complaints and Denies change in vision ENT: Reports system reviewed and no additional complaints, except as documented, Denies dizziness, Denies headache(s), Denies nasal congestion, Denies nasal discharge and Denies neck pain Cardiovascular: Cardiovascular: Reports no additional cardiovascular complai nts, Denies chest pain, Denies leg edema and Denies dyspnea Respiratory: Respiratory: Reports no additional respiratory complaints, Denies cough and Denies dyspnea Gastrointestinal: Gastrointestinal: Reports no additional gastrointestinal complaints, Reports abdominal pain, Denies melena, Denies hematochezia, Reports diarrhea, Reports nausea and Reports vomiting Genitourinary: Genitourinary: Denies urinary incontinence Musculoskeletal: Musculoskeletal: Reports no additional musculoskeletal complaints, Denies back pain, Denies arthralgias, Denies joint swelling, Denies neck pain, Denies numbness and Denies tingling Integumentary/Breasts: Skin/Breast: Reports system reviewed and no additional complaints, except as docu and Denies rash Neurologic: Reports system reviewed and no additional complaints, except as documented, Denies dizziness, Denies headache(s), Denies numbness, Denies tingling and Denies weakness PMFSH Past Medical History Attestation statement: The following information was validated with the patient. Source: old records reviewed and nursing notes reviewed Medical History IV drug user No pertinent past medical history Surgical History No pertinent past surgical history Social History Social History Household Members: Spouse Housing: House Do you presently have visiting nurse or other home services: No Alcohol intake: never Patient Tobacco Use Status: Former Tobacco user Tobacco use type: Cigarette e-Cigarette/Vaping Use: Never Used Substance Use Type: Heroin service: No Current occupational status: employed Physical Exam ED Vital Signs: Vital Signs - 24 hr 07/28/22 14:23 07/28/22 18:53 07/28/22 20:00 Temperature 98.1 F 98.9 F Pulse Rate 48 L 58 60 Respiratory Rate 18 16 18 Blood Pressure 160/93 H 138/89 131/68 Pulse Oximetry 98 99 99 Oxygen Delivery Method Room Air Room Air Room Air 07/28/22 22:00 Temperature 97.6 F Pulse Rate 72 Respiratory Rate 18 Blood Pressure 131/69 Pulse Oximetry 99 Oxygen Delivery Method Room Air BMI result Body Mass Index 23.6 Const General: cooperative, healthy appearing, comfortable and no acute distress Orientation/consciousness: patient oriented x3 Limitations: no limitations [facility] Head: Yes normal to inspection Ears: hearing grossly normal bilaterally Eyes General: appearance normal, both eyes and all related structures Pupils: Equal, round and reactive pupils present Neck Neck: Yes normal visual inspection and Yes full ROM Chest Chest palpation & inspection: normal inspection of the chest Resp Effort & Inspection: normal respiratory effort Auscultation: clear to auscultation bilaterally Cardio Rate: regular rate Rhythm: regular rhythm Peripheral pulses: Peripheral pulses 2+ throughout GI Inspection: Yes normal to inspection Palpation (GI): Soft to palpation and Tenderness to palpation present (GI) in the epigastrum Auscultation: normal bowel sounds Skin General skin exam: no rashes or lesions noted Neuro General: patient oriented x3 and moves all extremities Cranial nerves: Yes Equal, round and reactive pupils present Cognition (Neuro): normal cognition Gait exam (Neuro): Normal gait present Course Course Course Narrative: RME; Vomitting, diarrhea, and abdominal pain. has had these symptoms before the past 9 years. Clean from alcohol and drugs the past 9 months. patient is on subaxone Bradycardia. REst vital are normal. labs ordered. Charge nurse informed by Nurse Sweeney as patient being priority. patieint does not look good Reevaluation(s) Reevaluation #1: Reviewed labs which are unremarkable. Patient is tolerating p.o. with no additional vomiting episodes. Pain is well controlled. Patient has follow-up appoint with his primary care in 2 days. Will start him on a PPI, Carafate and give sublingual Zofran. Recommend he follow-up with primary care and request a GI referral. Reviewed worrisome signs and symptoms when to return to the emergency room. Comfortable plan for discha rge home. Medications Administered Discontinued Medications Generic Name Dose Route Start Last Admin Trade Name Keithq PRN Reason Stop Dose Admin Al Hydroxide/Mg Hydroxide 30 ml 07/28/22 19:51 07/28/22 20:04 Magnesium Hydrox/Alum Hydrox 30 Ml Oral.Susp PO 07/28/22 19:52 30 ml ONCE ONE Administration Famotidine 20 mg 07/28/22 18:37 07/28/22 19:05 Famotidine/Pf 20 Mg/2 Ml Vial IVPUSH 07/28/22 18:38 20 mg ONCE ONE Administration Sodium Chloride 1,000 mls @ 999 mls/hr 07/28/22 18:39 07/28/22 20:07 Ns IV 07/28/22 19:39 Infused .Q1H1M STA Infusion Lidocaine HCl 15 ml 07/28/22 19:51 07/28/22 20:04 Lidocaine Hcl Viscous 2 % 15 Ml Solution MUCOUS MEM 07/28/22 19:52 15 ml ONCE ONE Administration Morphine Sulfate 4 mg 07/28/22 18:37 07/28/22 19:05 Morphine Sulfate 4 Mg/Ml Cartridge IVPUSH 07/28/22 18:38 4 mg ONCE ONE Administration Protocol Ondansetron HCl 4 mg 07/28/22 15:14 07/28/22 15:16 Ondansetron Odt 4 Mg Tab.Rapdis YANNICKINGU 07/28/22 15:15 4 mg ONCE ONE Administration Ondansetron HCl 4 mg 07/28/22 18:37 07/28/22 19:05 Ondansetron Hcl 4 Mg/2 Ml Vial IVPUSH 07/28/22 18:38 4 mg ONCE ONE Administration Medical Decision Making Medical Decision Making [facility] Narrative: 41 y male here with vomiting, diarrhea, epigastric pain since this morning. On exam patient tenderness to the epigastric with no rebound or guarding. Patient will receive IV fluids, antiemetics, analgesia, will check labs and UA Differential Diagnosis Differential Diagnoses: The differential diagnosis associated with the presentation includes pancreatitis, gastroenteritis, infectious diarrhea, cholecystitis/choletlithias, cannaboid hyperemesis, PUD/gastritis Lab Data [facility] Lab Attestation statement: I reviewed the patient's lab results. 07/28/22 14:33 07/28/22 14:33 Labs: Lab Results 07/28/22 07/28/22 07/28/22 Range/Units 14:33 14:33 14:34 WBC 10.8 (4.8-10.8) X10*3/uL RBC 5.58 (4.60-5.80) X10*6/uL Hgb 15.4 (14.0-18.0) g/dl Hct 46.0 (42.0-52.0) % MCV 82.4 (80.0-98.0) fL MCH 27.6 (27.0-33.0) pg MCHC 33.5 (31.0-36.0) g/dl RDW 14.8 (11.0-16.0) % Plt Count 276 (160-400) X10*3/uL MPV 9.0 L (9.4-12.4) fL Immature Gran % (Auto) 0.4 (0.0-0.4) % Neut % (Auto) 92.1 H (45-73) % Lymph % (Auto) 5.8 L (20-40) % Hughes % (Auto) 1.6 L (2-11) % Eos % (Auto) 0.0 (0-4) % Baso % (Auto) 0.1 (0-2) % Lymph # (Auto) 0.6 L (1.2-4.9) X10*3/uL Hughes # (Auto) 0.2 (0.1-1.2) X10*3/uL Eos # (Auto) 0.0 (0.0-0.4) X10*3/uL Baso # (Auto) 0.0 (0.0-0.2) X10*3/uL Abs Immat Gran (auto) 0.04 H (0.00-0.03) X10*3/uL Absolute Neuts (auto) 9.9 H (2.0-8.3) x10*3/uL Absolute Nucleated RBC 0.000 (0.0-0.012) X10*3/uL Nucleated RBC % (auto) 0.0 (0.0-0.2) /100WBC Sodium 142 (135-145) mmol/L Potassium 4.7 (3.3-5.1) mmol/L Chloride 106 (96-108) mmol/L Carbon Dioxide 25 (22-29) mmol/L Anion Gap 16 (12-20) BUN 12 (9-16) mg/dL Creatinine 0.90 (0.5-1.4) mg/dL Estim Creat Clear Calc 110.1 Estimated GFR > 60 Random Glucose 157 H (60-115) mg/dL Calcium 10.3 H (8.4-10.2) mg/dL Total Bilirubin 1.0 (0.0-1.0) mg/dL AST 13 (5-37) U/L ALT 10 (0-40) U/L Alkaline Phosphatase 91 (39-117) U/L Total Protein 8.0 (6.5-8.0) g/dL Albumin 5.0 (3.5-5.0) g/dL Lipase 15 (8-78) U/L Urine Color Urine Appearance Urine pH (5.0-9.0) Ur Specific [place] (1.005-1.025) Urine Protein (Neg-Trace) mg/dL Urine Glucose (UA) (Negative) mg/dL Urine Ketones (Negative) mg/dL Urine Blood (Negative) Urine Nitrite (Negative) Ur Leukocyte Esterase (Negative) Urine RBC (0-2) /HPF Urine WBC (0-5) /HPF Ur Squamous Epith Cells (0-2) /HPF Urine Bacteria (None Seen) Hyaline Casts (0-2) /LPF Urine Opiates Screen (Not Detect) Urine Fentanyl Screen (Not Detect) Ur Barbiturates Screen (Not Detect) Ur Phencyclidine Scrn (Not Detect) Ur Amphetamines Screen (Not Detect) U Benzodiazepines Scrn (Not Detect) Urine Cocaine Screen (Not Detect) U Marijuana (THC) Screen (Not Detect) Influenza Type A (PCR) NEGATIVE (Negative) Influenza Type B (PCR) NEGATIVE (Negative) RSV RNA Qual (PCR) NEGATIVE (Negative) SARS-CoV-2 RNA (RT-PCR) NEGATIVE (Negative) 07/28/22 07/28/22 Range/Units 14:37 14:37 WBC (4.8-10.8) X10*3/uL RBC (4.60-5.80) X10*6/uL Hgb (14.0-18.0) g/dl Hct (42.0-52.0) % MCV (80.0-98.0) fL MCH (27.0-33.0) pg MCHC (31.0-36.0) g/dl RDW (11.0-16.0) % Plt Count (160-400) X10*3/uL MPV (9.4-12.4) fL Immature Gran % (Auto) (0.0-0.4) % Neut % (Auto) (45-73) % Lymph % (Auto) (20-40) % Hughes % (Auto) (2-11) % Eos % (Auto) (0-4) % Baso % (Auto) (0-2) % Lymph # (Auto) (1.2-4.9) X10*3/uL Hughes # (Auto) (0.1-1.2) X10*3/uL Eos # (Auto) (0.0-0.4) X10*3/uL Baso # (Auto) (0.0-0.2) X10*3/uL Abs Immat Gran (auto) (0.00-0.03) X10*3/uL Absolute Neuts (auto) (2.0-8.3) x10*3/uL Absolute Nucleated RBC (0.0-0.012) X10*3/uL Nucleated RBC % (auto) (0.0-0.2) /100WBC Sodium (135-145) mmol/L Potassium (3.3-5.1) mmol/L Chloride (96-108) mmol/L Carbon Dioxide (22-29) mmol/L Anion Gap (12-20) BUN (9-16) mg/dL Creatinine (0.5-1.4) mg/dL Estim Creat Clear Calc Estimated GFR Random Glucose (60-115) mg/dL Calcium (8.4-10.2) mg/dL Total Bilirubin (0.0-1.0) mg/dL AST (5-37) U/L ALT (0-40) U/L Alkaline Phosphatase (39-117) U/L Total Protein (6.5-8.0) g/dL Albumin (3.5-5.0) g/dL Lipase (8-78) U/L Urine Color Yellow Urine Appearance Clear Urine pH 6.5 (5.0-9.0) Ur Specific [place] >= 1.030 H (1.005-1.025) Urine Protein 30 (1+) H (Neg-Trace) mg/dL Urine Glucose (UA) 250 H (Negative) mg/dL Urine Ketones 15 (Negative) mg/dL Urine Blood Negative (Negative) Urine Nitrite Negative (Negative) Ur Leukocyte Esterase Negative (Negative) Urine RBC 0-2 (0-2) /HPF Urine WBC 0-5 (0-5) /HPF Ur Squamous Epith Cells 0-2 (0-2) /HPF Urine Bacteria None Seen (None Seen) Hyaline Casts 0-2 (0-2) /LPF Urine Opiates Screen Not Detected (Not Detect) Urine Fentanyl Screen Not Detected (Not Detect) Ur Barbiturates Screen Not Detected (Not Detect) Ur Phencyclidine Scrn Not Detected (Not Detect) Ur Amphetamines Screen Not Detected (Not Detect) U Benzodiazepines Scrn Not Detected (Not Detect) Urine Cocaine Screen Not Detected (Not Detect) U Marijuana (THC) Screen POSITIVE H (Not Detect) Influenza Type A (PCR) (Negative) Influenza Type B (PCR) (Negative) RSV RNA Qual (PCR) (Negative) SARS-CoV-2 RNA (RT-PCR) (Negative) Discharge Plan Discharge Clinical Impression: Abdominal pain Patient Disposition: Home, Self-Care Instructions: Abdominal Pain (ED) Additional Instructions: See your primary care doctor on Friday and ask for referral for GI Follow the dietary changes that we discussed, limit marijuana use Prescriptions: No Action omeprazole 20 mg capsule,delayed release(DR/EC) 20 mg PO BID Qty: 60 0RF Interventions: ED Discharge Assessment Last Done: 07/28/22 22:07 Discharge Date/Time: 07/28/22 22:08
[2022-07-28 14:37] LABS: MANUAL DIFF FLAG NO
[2022-07-28 14:39] LABS: Basophils Percent Auto 0.1 % (0-2); Hemoglobin 15.4 g/dl (14.0-18.0); Imm Gran Abs Auto 0.04 X10*3/uL (0.00-0.03); Imm Gran Pct Auto 0.4 % (0.0-0.4); Lymphocytes Absolute Auto 0.6 X10*3/uL (1.2-4.9); Lymphocytes Percent Auto 5.8 % (20-40); Mean Corpuscular HGB Conc 33.5 g/dl (31.0-36.0); Mean Corpuscular Hemoglobin 27.6 pg (27.0-33.0); Mean Corpuscular Volume 82.4 fL (80.0-98.0); Monocytes Absolute Auto 0.2 X10*3/uL (0.1-1.2); Monocytes Percent Auto 1.6 % (2-11); Neutrophils Absolute Auto 9.9 x10*3/uL (2.0-8.3); Neutrophils Percent Auto 92.1 % (45-73); Platelet Count 276 X10*3/uL (160-400); Red Blood Count 5.58 X10*6/uL (4.60-5.80); Red Cell Distribution Width 14.8 % (11.0-16.0); SCAN SMEAR FLAG 1; White Blood Count 10.8 X10*3/uL (4.8-10.8)
[2022-07-28 14:48] LABS: Appearance Urine Clear; Color Urine Yellow; Glucose Urine UA 250 mg/dL (Negative); Leukocyte Esterase Urine Negative (Negative); Nitrite Urine Negative (Negative); PH 6.5 (5.0-9.0); Specific Gravity - Urine >= 1.030 (1.005-1.025); UMIC TRIGGER UACC YES; Urine Blood Negative (Negative); Urine Ketones 15 mg/dL (Negative); Urine Protein 30 (1+) mg/dL (Neg-Trace)
[2022-07-28 14:54] LABS: Bacteria Urine None Seen (None Seen); Hyaline Casts Urine 0-2 /LPF (0-2); RBC Urine 0-2 /HPF (0-2); Squamous Epithelial Cell Urine 0-2 /HPF (0-2); WBC Urine 0-5 /HPF (0-5)
[2022-07-28 14:58] LABS: Alanine Aminotransferase 10 U/L (0-40); Alkaline Phosphatase 91 U/L (39-117); Anion Gap 16 (12-20); Aspartate Amino Transferase 13 U/L (5-37); Blood Urea Nitrogen 12 mg/dL (9-16); Calcium 10.3 mg/dL (8.4-10.2); Carbon Dioxide 25 mmol/L (22-29); Chloride 106 mmol/L (96-108); Creatinine Clr Calc Pharmacy 110.1; Estimated Glomerular Filt Rate > 60; Glucose Random 157 mg/dL (60-115); Lipase 15 U/L (8-78); Potassium 4.7 mmol/L (3.3-5.1); Sodium 142 mmol/L (135-145)
[2022-07-28 14:58] LABS: Amphetamine Screen Urine Not Detected (Not Detect); Barbiturates, Urine Not Detected (Not Detect); Benzodiazepines Screen Urine Not Detected (Not Detect); Cannabinoid Screen Urine POSITIVE (Not Detect); Cocaine Screen Urine Not Detected (Not Detect); Fentanyl, urine Not Detected (Not Detect); Opiate Screen Urine Not Detected (Not Detect); Phencyclidine Screen Urine Not Detected (Not Detect)
[2022-07-28] MEDS: Ondansetron ODT 4 MG TAB.RAPDIS TRANSLINGU (15:16)
[2022-07-28 15:21] LABS: Influenza A PCR NEGATIVE (Negative); Influenza B PCR NEGATIVE (Negative); Resp Syncy Virus RNA Qual PCR NEGATIVE (Negative); SARS COV2 PCR INHOUSE NEGATIVE (Negative)
--- NOTE | 2022-07-28 15:44 | PC.NURSE ---
sl zofran given. attempted po challenge with ice chips. vomiting s/p
[2022-07-28 18:53] VITALS: BP 138/89; PULSE 58; RESP 16; TEMP 37.2; O2SAT 99
[2022-07-28] MEDS: Morphine Sulfate 4 MG/ML CARTRIDGE IVPUSH (19:05)
[2022-07-28] MEDS: ondansetron HCL 4 MG/2 ML VIAL IVPUSH (19:05)
[2022-07-28] MEDS: Famotidine/PF 20 MG/2 ML VIAL IVPUSH (19:05)
[2022-07-28] MEDS: 0.9 % Sodium Chloride 1,000 ML 999 ML IV (19:06)
[2022-07-28 20:00] VITALS: BP 131/68; PULSE 60; RESP 18; O2SAT 99
[2022-07-28] MEDS: Lidocaine HCl Viscous 2 % 15 ML SOLUTION MUCOUS MEM (20:04)
[2022-07-28] MEDS: Magnesium Hydrox/Alum Hydrox 30 ML ORAL.SUSP PO (20:04)
[2022-07-28 22:00] VITALS: BP 131/69; PULSE 72; RESP 18; TEMP 36.4; O2SAT 99
== END 2022-07-28 22:08 | disposition home or self-care (01) ==
PROVIDERS: Physician Assistant; Emergency Provider Internal Medicine; PCP Family Medicine
DX: R10.2 Pelvic and perineal pain (principal); R10.13 Epigastric pain; Z87.891 Personal history of nicotine dependence; Z20.822 Contact with and (suspected) exposure to COVID-19; Z20.828 Contact with and (suspected) exposure to other viral communicable diseases; Z79.899 Other long term (current) drug therapy
CPT/HCPCS: 0241U; 80053; 80307; 81001; 83690; 85025; 96361; 96374; 96375; 99284; J2270; J2405

== ENCOUNTER 2022-07-30 05:05 | Emergency (ER) | payer OTHER, SELFPAY ==
[2022-07-30 05:09] VITALS: BP 150/95; PULSE 58; RESP 18; TEMP 36.5; O2SAT 99; BMI 23.6
--- NOTE | 2022-07-30 05:27 | ED.NAVMDI ---
HPI - Nausea/Vomiting/Diarrhea General Chief complaint: Abdominal Pain Stated complaint: Vomiting Time Seen by Provider: 07/30/22 05:26 Source: patient Mode of arrival: ambulatory Limitations: no limitations History of Present Illness HPI Narrative: Patient smokes marijuana with frequent episodes of vomiting and abdominal pain was seen here 07/28 with same workup negative smoke marijuana again when he went night with same thing and epigastric pain no diarrhea no fever no chills Related Data Previous Rx's Medication Instructions Recorded aluminum-mag hydroxide-simethicone 5 ml PO 5XD PRN dyspepsia #30 mL 04/11/21 200 mg-200 mg-20 mg/5 mL oral susp (Maalox Advanced) famotidine 20 mg tablet (Pepcid) 20 mg PO DAILY #14 tabs 04/11/21 ondansetron 4 mg disintegrating 4 mg PO Q8H PRN nausea and 04/11/21 tablet vomiting #10 tabs prochlorperazine maleate 10 mg 10 mg PO Q8H PRN nausea and 07/11/22 tablet (Compazine) vomiting #10 tabs omeprazole 40 mg capsule,delayed 40 mg PO BID #14 caps 07/28/22 release ondansetron 4 mg disintegrating 4 mg PO Q6H PRN nausea and 07/28/22 tablet vomiting #14 tabs sucralfate 1 gram tablet (Carafate) 1 g PO TID #90 tabs 07/28/22 pantoprazole 40 mg tablet,delayed 40 mg PO DAILY #30 tabs 07/30/22 release (Protonix) sucralfate 1 gram tablet 1 g PO BID #60 tabs 07/30/22 Allergies Allergy/AdvReac Type Severity Reaction Status Date / Time No Known Allergies Allergy Unknown Verified 04/09/21 20:23 Review of Systems Review of Systems: Yes all other systems are reviewed and are negative PMFSH Past Medical History Medical History No pertinent past medical history Social History Social History Alcohol intake: never Patient Tobacco Use Status: Current everyday Tobacco user Smoked in Last 30 Days: No Use of substances other than those prescribed or required for medical reasons: No Substance Use Type: Marijuana Advance Directives: No Advance Directives Information Provided: Yes Physical Exam Vital Signs: Vital Signs: Last Vital Signs Temp 98.3 F 07/30/22 06:00 Pulse 52 07/30/22 06:00 Resp 16 07/30/22 06:00 BP 156/87 H 07/30/22 06:00 Pulse Ox 98 07/30/22 06:00 O2 Del Method Room Air 07/30/22 06:00 BMI result Body Mass Index 23.6 Appearance: Alert. Oriented X3. No acute distress. ENT: Pharynx normal. Oral Mucosa moist Neck: Normal inspection. Neck supple. CVS: Normal heart rate and rhythm. Pulses normal. Respiratory: No respiratory distress. Equal air entry bilateral, Abdomen: Soft mild epigastric tenderness Bowel sounds are present, no mass palpable, no CVA tenderness Skin: Skin warm and dry. Normal skin color. Normal skin turgor. Extremities: No lower extremity edema. No calf tenderness Neuro: Oriented X 3. No motor deficit. Medications Administered Discontinued Medications Generic Name Dose Route Start Last Admin Trade Name Freq PRN Reason Stop Dose Admin Al Hydroxide/Mg Hydroxide 30 ml 07/30/22 05:54 07/30/22 05:57 Magnesium Hydrox/Alum Hydrox 30 Ml Oral.Susp PO 07/30/22 05:55 30 ml ONCE ONE Administration Lidocaine HCl 15 ml 07/30/22 05:54 07/30/22 05:57 Lidocaine Hcl Viscous 2 % 15 Ml Solution MUCOUS MEM 07/30/22 05:55 15 ml ONCE ONE Administration Lorazepam 2 mg 07/30/22 05:29 07/30/22 05:34 Lorazepam 1 Mg Tablet PO 07/30/22 05:30 2 mg ONCE ONE Administration Ondansetron HCl 4 mg 07/30/22 05:29 07/30/22 05:34 Ondansetron Odt 4 Mg Tab.Rapdis TRANSLINGU 07/30/22 05:30 4 mg ONCE ONE Administration Medical Decision Making Medical Decision Making MDM Narrative: Patient cannabis use with frequent abdominal pain with vomiting likely cannabis induced patient advised to stop using cannabis advised to follow-up with GI/PCP Discharge Plan Discharge Clinical Impression: Acute gastritis, Cannabis abuse with cannabis-induced disorder Patient Disposition: Home, Self-Care Instructions: Gastritis (ED), Cannabis Abuse (ED) Additional Instructions: Your symptoms likely from cannabis use Stop using cannabis Take medication as prescribed for gastritis Prescriptions: New pantoprazole [Protonix] 40 mg tablet,delayed release (DR/EC) 40 mg PO DAILY Qty: 30 0RF sucralfate 1 gram tablet 1 g PO BID Qty: 60 0RF No Action famotidine [Pepcid] 20 mg tablet 20 mg PO DAILY Qty: 14 0RF alum-mag hydroxide-simeth [Maalox Advanced] 200-200-20 mg/5 mL suspension 5 ml PO 5XD PRN (Reason: dyspepsia) Qty: 30 0RF Rx Instructions: administer between meals and at bedtime ondansetron 4 mg tablet,disintegrating 4 mg PO Q8H PRN (Reason: nausea and vomiting) Qty: 10 0RF prochlorperazine maleate [Compazine] 10 mg tablet 10 mg PO Q8H PRN (Reason: nausea and vomiting) Qty: 10 0RF omeprazole 40 mg capsule,delayed release(DR/EC) 40 mg PO BID Qty: 14 0RF sucralfate [Carafate] 1 gram tablet 1 g PO TID Qty: 90 0RF ondansetron 4 mg tablet,disintegrating 4 mg PO Q6H PRN (Reason: nausea and vomiting) Qty: 14 0RF
[2022-07-30 05:28] VITALS: BP 150/95; PULSE 58; RESP 18; TEMP 36.5; O2SAT 99
--- NOTE | 2022-07-30 05:29 | PC.NURSE ---
Pt ca&ox3, reports 09/26 mid abdm pain. No signs of distress. Provider in with pt. santo.
[2022-07-30] MEDS: LORazepam 1 MG TABLET 2 MG PO (05:34)
[2022-07-30] MEDS: Ondansetron ODT 4 MG TAB.RAPDIS TRANSLINGU (05:34)
--- NOTE | 2022-07-30 05:39 | PC.NURSE ---
Pt medicated per apr. santo.
[2022-07-30] MEDS: Lidocaine HCl Viscous 2 % 15 ML SOLUTION MUCOUS MEM (05:57)
[2022-07-30] MEDS: Magnesium Hydrox/Alum Hydrox 30 ML ORAL.SUSP PO (05:57)
[2022-07-30 06:00] VITALS: BP 156/87; PULSE 52; RESP 16; TEMP 36.8; O2SAT 98
== END 2022-07-30 07:02 | disposition home or self-care (01) ==
PROVIDERS: Emergency Provider Internal Medicine; PCP Family Medicine
DX: K29.00 Acute gastritis without bleeding (principal); F12.19 Cannabis abuse with unspecified cannabis-induced disorder; R11.10 Vomiting, unspecified; Z79.899 Other long term (current) drug therapy; F17.210 Nicotine dependence, cigarettes, uncomplicated; Z71.6 Tobacco abuse counseling
CPT/HCPCS: 99283; 99284

== ENCOUNTER 2022-07-30 18:30 | Observation (INO) | payer OTHER, SELFPAY ==
[2022-07-30 18:42] VITALS: BP 154/101; PULSE 82; TEMP 36.6; O2SAT 98; BMI 21.4
--- NOTE | 2022-07-30 18:49 | ED.OVERDOSE ---
HPI - Overdose General Chief Complaint: Overdose Stated Complaint: OVERDOSE Time Seen by Provider: 07/30/22 18:39 Source: patient and EMS Mode of arrival: EMS Limitations: no limitations History of Present Illness HPI Narrative: 41-year-old male came in by ambulance for evaluation after received Narcan for heroin overdose. Patient stated he has been sober for the past 10 months used IV heroin earlier today, witnessed by his friend overdosed and he was given Narcan intranasally by his friend, patient decline SI or HI. No AVH. Patient has been vomiting for the last few days nonstop, has been seen in the hospital twice in the last week for vomiting. Patient now report streaks of blood in the vomit. Related Data Previous Rx's Medication Instructions Recorded aluminum-mag hydroxide-simethicone 5 ml PO 5XD PRN dyspepsia #30 mL 04/11/21 200 mg-200 mg-20 mg/5 mL oral susp (Maalox Advanced) famotidine 20 mg tablet (Pepcid) 20 mg PO DAILY #14 tabs 04/11/21 ondansetron 4 mg disintegrating 4 mg PO Q8H PRN nausea and 04/11/21 tablet vomiting #10 tabs prochlorperazine maleate 10 mg 10 mg PO Q8H PRN nausea and 07/11/22 tablet (Compazine) vomiting #10 tabs omeprazole 40 mg capsule,delayed 40 mg PO BID #14 caps 07/28/22 release ondansetron 4 mg disintegrating 4 mg PO Q6H PRN nausea and 07/28/22 tablet vomiting #14 tabs sucralfate 1 gram tablet (Carafate) 1 g PO TID #90 tabs 07/28/22 pantoprazole 40 mg tablet,delayed 40 mg PO DAILY #30 tabs 07/30/22 release (Protonix) sucralfate 1 gram tablet 1 g PO BID #60 tabs 07/30/22 Allergies Allergy/AdvReac Type Severity Reaction Status Date / Time No Known Allergies Allergy Unknown Verified 04/09/21 20:23 Review of Systems Review of Systems: All other systems are reviewed and are negative Constitutional: Reports as per HPI and Reports no additional constitutional complaints Eyes: Reports as per HPI and Reports no additional eye complaints Reports system reviewed and no additional complaints, except as documented Cardiovascular: Reports as per HPI and Reports no additional cardiovascular complaints Respiratory: Reports as per HPI and Reports no additional respiratory complaints Gastrointestinal: Reports as per HPI and Reports no additional gastrointestinal complaints Genitourinary: Reports no additional female genitourinary complaints Musculoskeletal: Reports no additional musculoskeletal complaints Skin/Breast: Reports system reviewed and no additional complaints, except as docu Psychiatric: Reports no additional psychiatric complaints Endocrine: Reports no additional endocrine complaints Hematologic/Lymphatic: Reports no additional hematologic/lymphatic complaints Allergic/Immunologic: Reports no additional allergic/immunologic complaints Reports system reviewed and no additional complaints, except as documented and Reports Abnormal speech present [facility] Past Medical History Medical History No pertinent past medical history Social History Social History Alcohol intake: never Patient Tobacco Use Status: Current everyday Tobacco user Substance Use Type: Marijuana Advance Directives: No Advance Directives Information Provided: No Physical Exam Vital Signs: Vital Signs: Last Vital Signs Temp 98.5 F 07/30/22 21:58 Pulse 86 07/30/22 21:58 Resp 17 07/30/22 21:58 BP 133/81 07/30/22 21:58 Pulse Ox 97 07/30/22 21:58 O2 Del Method Room Air 07/30/22 21:58 BMI result Body Mass Index 21.4 Vital signs have been reviewed as appeared to be correct. Blood pressure normal. Heart rate normal. Respiration rate normal. Temperature normal. Oxygen saturation normal. Appearance: Alert. Oriented X3. No acute distress. Head: Normal external exam. Normocephalic. Atraumatic. No Carrillo signs noted. No raccoon eyes noted Eyes: PERRLA. EOMI. Conjunctiva and sclera normal. Eyelids normal. ENT: TM's Normal. Pharynx normal. Uvula midline. Moist mucous membranes. No trismus noted. No drooling noted. No muffled voice noted. Neck: Normal inspection. Neck supple. FROM. No adenopathy. Thyroid Normal. No meningeal signs. No neck mass noted. CVS: Normal heart rate and rhythm. Heart sound normal. No murmurs noted. Pulses normal throughout. Respiratory: No respiratory distress. Painless inspiration. Breath sounds normal. No wheezes/rales/rhonchi noted. Chest nontender. No accessory muscle usage noted or decreased air movement noted. Abdomen: Soft and nontender. Bowel sounds normal in all 4 quadrants. No distention noted. No organomegaly noted. No visible injury noted. Back: No CVA tenderness. Full range of motion noted. Skin: Skin warm and dry. Normal skin color. Normal skin turgor. No rashes/lesions/lacerations noted. Extremities: No lower extremity edema. Extremities exhibit normal range of motion. Extremities nontender. Neuro: Oriented X 3. Cranial nerve exam: II-XII are grossly intact No motor deficit. No sensory deficit. Reflexes normal. Patient Orientation: Person, Place, Time and Situation, okay hygiene and grooming. Fair eye contact, attentive, no tics or tremors. Level of Consciousness: Awake, Appropriate and Alert Patient Behavior: Appropriate, Guarded, Cooperative and Anxious Mood Description: Constricted, Blunted and Apprehensive Affect Description: Constricted, Blunted and Apprehensive Patient Cognition Impaired: No Ability to Follow Directions: Excellent Speech Pattern: Clear, Appropriate and Spontaneous Speech, nonpressured, spontaneous with regular rate and rhythm, normal volume and prosody. No dysarthria. Memory Description: Intact, Immediate Intact and Short Term Intact Hallucinations: None Delusions: Not Present Thought Process: Intact Thought Content: positive for Intact, positive for Logical, denies Suicidal Ideation and denies Homicidal Ideation. Depressive Symptoms: Not present. Judgement and Insight: Limited but adequate. Course Course Course Narrative: Heroin overdose responded to Narcan, no SI or HI, will discharge with neck and to go home, recommended to the patient to speak with care team. Reevaluation(s) Reevaluation #1: Patient been having episodes of vomiting that is uncontrollable, patient had 1 time vomiting in the emergency department with streaks of blood. Time: 22:18 Medications Administered Discontinued Medications Generic Name Dose Route Start Last Admin Trade Name Freq PRN Reason Stop Dose Admin Al Hydroxide/Mg Hydroxide 30 ml 07/30/22 20:17 07/30/22 20:35 Magnesium Hydrox/Alum Hydrox 30 Ml Oral.Susp PO 07/30/22 20:18 30 ml ONCE ONE Administration Sodium Chloride 1,000 mls @ 999 mls/hr 07/30/22 20:19 07/30/22 21:41 Ns IV 07/30/22 21:19 Infused .Q1H1M ONE Infusion Metoclopramide HCl 10 mg 07/30/22 20:17 07/30/22 20:35 Metoclopramide Hcl 10 Mg/2 Ml Vial IVPUSH 07/30/22 20:18 10 mg ONCE ONE Administration Medical Decision Making Differential Diagnosis Differential Diagnoses: The differential diagnosis associated with the presentation includes (SI, HI, hallucination, substance abuse, gastritis, esophagitis, GI bleed, like true lytes abnormalities, dehydration, anemia.) Admission/Observation Consideration of admission/observation: Escalation of care including admission/observation considered Lab Data MDM Lab Attestation statement: I reviewed the patient's lab results. Labs: Lab Results 07/30/22 Range/Units 20:56 Total Bilirubin 0.8 (0.0-1.0) mg/dL Direct Bilirubin 0.2 (0.0-0.5) mg/dL AST 11 (5-37) U/L ALT 8 (0-40) U/L Alkaline Phosphatase 65 (39-117) U/L Total Protein 6.3 L (6.5-8.0) g/dL Albumin 3.9 (3.5-5.0) g/dL Lipase 22 (8-78) U/L Discharge Plan Discharge Clinical Impression: Accidental heroin overdose, Intractable vomiting, Gastritis Patient Disposition: Admitted As Inpatient
--- NOTE | 2022-07-30 18:54 | PC.NURSE ---
Pt A&O, denied any pain or discomfort, stated I just wan to go home to my . Pt informed nurse he was here this yesterday evening and this morning for vomiting. He did f/u with his primary. Stated he OD on 1 bag of heroin via IV.
--- NOTE | 2022-07-30 19:48 | MHC.CARE ---
CARE Team meets with pt in 6H to offer the SUDE. Pt states he feels horrible, and replies not today when offered assessment. He does identify that he has been sober for 10 months and messed up today. He reports having serviced in place and has naloxone at home. CARE Team communicates outcome to Dr. Faith who plans on D/c. Pt reports he has a ride home.
--- NOTE | 2022-07-30 20:13 | PC.NURSE ---
pt states he has been vomiting up blood. rn made aware discharge is up and waiting for doctors ok to still discharge pt.
[2022-07-30] MEDS: Magnesium Hydrox/Alum Hydrox 30 ML ORAL.SUSP PO ×2 (20:35→22:45)
[2022-07-30] MEDS: Metoclopramide HCl 10 MG/2 ML VIAL IVPUSH (20:35)
[2022-07-30] MEDS: 0.9 % Sodium Chloride 1,000 ML 999 ML IV (20:36)
[2022-07-30 21:18] LABS: Alanine Aminotransferase 8 U/L (0-40); Albumin Level 3.9 g/dL (3.5-5.0); Alkaline Phosphatase 65 U/L (39-117); Aspartate Amino Transferase 11 U/L (5-37); Bilirubin Direct 0.2 mg/dL (0.0-0.5); Bilirubin Total 0.8 mg/dL (0.0-1.0); Lipase 22 U/L (8-78); Total Protein 6.3 g/dL (6.5-8.0)
[2022-07-30 21:50] VITALS: BP 153/102; PULSE 64
[2022-07-30 21:51] VITALS: BP 133/81; BP 159/92; PULSE 86; PULSE 87
[2022-07-30 21:58] VITALS: BP 133/81; PULSE 86; RESP 17; TEMP 36.9; O2SAT 97
[2022-07-30 22:30] LABS: Anion Gap 12 (12-20)
[2022-07-30 22:32] LABS: Blood Urea Nitrogen 18 mg/dL (9-16); Calcium 8.3 mg/dL (8.4-10.2); Carbon Dioxide 24 mmol/L (22-29); Chloride 110 mmol/L (96-108); Creatinine Clr Calc Pharmacy 105.9; Estimated Glomerular Filt Rate > 60; Glucose Random 230 mg/dL (60-115); Potassium 3.7 mmol/L (3.3-5.1); Sodium 142 mmol/L (135-145)
[2022-07-30] MEDS: ondansetron HCL 4 MG/2 ML VIAL IVPUSH (22:45)
[2022-07-30] MEDS: Pantoprazole Sodium 40 MG/10 ML VIAL IVPUSH (22:45)
--- NOTE | 2022-07-30 23:26 | P.HPHOSP_ITS ---
History of Present Illness Date of Service: 07/30/22 Chief Complaint: overdose, cyclic vomiting 41-year-old male with past medical history of cyclic vomiting as well as past history of IV drug use presents the hospital after overdosing on heroin. Patient reports that last use was 10 months ago, he relapsed today. Patient reports that he has been feeling very frustrated with his recurrent bouts of nausea and vomiting. He has been having intractable nausea vomiting for the past 3 days, this occurs every several months, has been happening for the past 4 years. As a result of this frustration he went and used heroin. He currently has nausea, 1 episode of vomiting, but otherwise reports no shortness of breath, no chest pain, no urinary symptoms and no lower extremity dominant. He states that he also noticed blood in his vomit this afternoon. He does actively use marijuana, daily user. he otherwise has no headache, no change in vision, no urinary symptoms and no lower extremity edema. On arrival to the ED patient hemodynamically stable with no significant abnormal vitals labs reviewed unremarkable patient will be admitted for further monitoring Review of Systems Review of Systems: Yes all other systems are reviewed and are negative [facility] Medical History IV drug user No pertinent past medical history Surgical History No pertinent past surgical history Social History Alcohol intake: never Patient Tobacco Use Status: Current everyday Tobacco user Smoked in Last 30 Days: No Use of substances other than those prescribed or required for medical reasons: Yes Substance Use Type: Heroin Substance Use Frequency: Occasionally Any prior treatment program specific to substance use: Yes Advance Directives: No Advance Directives Information Provided: No Meds Allergies Allergy/AdvReac Type Severity Reaction Status Date / Time No Known Allergies Allergy Unknown Verified 04/09/21 20:23 Physical Exam Vital Signs and Narrative: Vital Signs: Last Vital Signs Temp 98.5 F 07/30/22 21:58 Pulse 86 07/30/22 21:58 Resp 17 07/30/22 21:58 BP 133/81 07/30/22 21:58 Pulse Ox 97 07/30/22 21:58 O2 Del Method Room Air 07/30/22 21:58 BMI result Body Mass Index 21.4 Const: General: cooperative and no acute distress Orientation/consciousness: patient oriented x3 Eyes: General: appearance normal, both eyes and all related structures Resp: Effort & Inspection: normal respiratory effort Auscultation: clear to auscultation bilaterally Cardio: Rate: regular rate Rhythm: regular rhythm GI: Palpation (GI): Soft to palpation Auscultation: normal bowel sounds Skin: General skin exam: no rashes or lesions noted Neuro: General: patient oriented x3 Cognition (Neuro): normal cognition Extrem: General: Yes normal to inspection and Yes no pedal edema Results Labs 07/30/22 20:56 Labs: Laboratory Results - last 24 hr 07/30/22 20:56 Anion Gap 12 Estim Creat Clear Calc 105.9 Estimated GFR > 60 Random Glucose 230 H Calcium 8.3 L D Total Bilirubin 0.8 Direct Bilirubin 0.2 AST 11 ALT 8 Alkaline Phosphatase 65 Total Protein 6.3 L Albumin 3.9 Lipase 22 Assessment and Plan (1) Accidental heroin overdose: Qualifiers: Encounter type: initial encounter Qualified Code(s): T40.1X1A - Poisoning by heroin, accidental (unintentional), initial encounter Status: Acute (2) Intractable vomiting: Status: Acute (3) Cyclic vomiting syndrome: Status: Acute Plan 41-year-old male with past medical history of IV drug use was in remission, relapsed today, history of cyclic vomiting syndrome presents the hospital with complaints of overdose and intractable vomiting as well as hematemesis # accidental heroin overdose - hemodynamically stable, - required Narcan - at this time no sequelae, patient alert awake and oriented x4 - monitor respiratory status # intractable nausea vomiting - likely secondary to cyclic vomiting syndrom e- will treat with antiemetics - IV fluids - monitor - I had a long discussion about requirement to discontinue use of marijuana the a help with his symptoms, patient understands # hematemesis - likely secondary to vomiting - hemodynamically stable - H&H stable - monitor H&H and morning DVT prophylaxis: Early ambulation Time Spent With Patient Time: Total time managing care of this patient today ____ minutes. Quality Stroke Does the patient have a stroke diagnosis?: No VTE Prior VTE?: No VTE Risk Level:: Medical - low VTE Device Contraindication: Treatment Not Indicated VTE Drug Contraindication: N/A - Med Ordered
--- NOTE | 2022-07-30 23:30 | PC.NURSE ---
pt assessed at 2034, pt c/o nausea and vomiting blood. medicated with raglan, Maalox and NS
--- NOTE | 2022-07-30 23:32 | PC.NURSE ---
pt reassessed at after medications pt reported no nausea relief and mild amt of abd pain, medicated with zofran, Maalox and protonix
[2022-07-31] VITALS: BP 136/76; PULSE 72; RESP 16; TEMP 36.2; O2SAT 98
[2022-07-31] MEDS: Lactated Ringers 1,000 ML 100 ML IVCONT ×3 (00:03→18:29)
[2022-07-31 05:05] VITALS: BP 120/84; PULSE 62; RESP 17; TEMP 36.9; O2SAT 97
[2022-07-31 06:31] LABS: MANUAL DIFF FLAG NO
[2022-07-31 06:42] LABS: Basophils Percent Auto 0.3 % (0-2); Eosinophils Absolute Auto 0.1 X10*3/uL (0.0-0.4); Eosinophils Percent Auto 0.9 % (0-4); Hematocrit 35.2 % (42.0-52.0); Imm Gran Abs Auto 0.12 X10*3/uL (0.00-0.03); Imm Gran Pct Auto 1.2 % (0.0-0.4); Lymphocytes Absolute Auto 2.6 X10*3/uL (1.2-4.9); Lymphocytes Percent Auto 26.8 % (20-40); Mean Corpuscular HGB Conc 34.1 g/dl (31.0-36.0); Mean Corpuscular Hemoglobin 28.3 pg (27.0-33.0); Mean Platelet Volume 9.1 fL (9.4-12.4); Monocytes Absolute Auto 0.6 X10*3/uL (0.1-1.2); Monocytes Percent Auto 6.3 % (2-11); Neutrophils Absolute Auto 6.3 x10*3/uL (2.0-8.3); Neutrophils Percent Auto 64.5 % (45-73); Platelet Count 215 X10*3/uL (160-400); Red Blood Count 4.24 X10*6/uL (4.60-5.80); Red Cell Distribution Width 14.6 % (11.0-16.0); White Blood Count 9.8 X10*3/uL (4.8-10.8)
[2022-07-31 06:45] VITALS: BP 123/88; PULSE 72; RESP 18; TEMP 37.3; O2SAT 97
[2022-07-31 06:58] LABS: Anion Gap 9 (12-20); Blood Urea Nitrogen 16 mg/dL (9-16); Calcium 8.8 mg/dL (8.4-10.2); Carbon Dioxide 28 mmol/L (22-29); Chloride 108 mmol/L (96-108); Creatinine Clr Calc Pharmacy 112.3; Estimated Glomerular Filt Rate > 60; Glucose Random 87 mg/dL (60-115); Potassium 3.5 mmol/L (3.3-5.1); Sodium 141 mmol/L (135-145)
--- NOTE | 2022-07-31 08:34 | PHA.MEDREC ---
Pharmacy Consult ? Medication Reconciliation Pharmacy has completed the medication reconciliation. Spoke to pt at bedside, noted he recently stopped both gabapentin and suboxone
[2022-07-31] MEDS: 0.9 % Sodium Chloride Flush 3 ML SYRINGE IVFLUSH (09:47)
[2022-07-31] MEDS: Pantoprazole Sodium 40 MG/10 ML VIAL IVPUSH ×2 (09:47→15:46)
--- NOTE | 2022-07-31 10:00 | HO.SUDE ---
Met with pt in 370 after pt presented for overdose yesterday. Pt admitted for intractable nausea and vomiting likely related to cyclic vomiting syndrome. Pt sitting in bed, awake, alert, easily engages in conversation, appears comfortable. Pt reports having been in recovery x 10-12 months from heroin, cocaine, and alcohol. Pt reports using marijuana daily, typically one joint in the evening. Pt reports approx once per year for the last 4 years having episodes of intractable nausea and vomiting with no apparent source. Pt is unsure if he believes it is related to marijuana use. Discussed/educated pt about cannabis hyperemesis syndrome. Pt reports using heroin yesterday, 1 bag IV, in hopes of feeling better from nausea and vomiting. Pt reports he asked friend before using if Narcan was available and instructed friend to call 911 if pt overdosed. Pt reports this was second overdose, first was years ago. Pt reports longest period in recovery was approx 4 years, had utilized Suboxone, meetings, spousal support, work, and Vivitrol. Pt has never been on methadone. Pt reports most recently having been on Suboxone x 7 months through [facility] in [place] and tapered off. Last dose, 03/04 of a film, 4 days ago. Pt reports having psychiatrist and therapist through [facility] as well as men's golf coach. Pt reports psychiatrist had been prescribing gabapentin and an antidepressant which caused pt to have dark suicidal thoughts. Pt and provider decided to taper off all medications. Pt is not interested in restarting Suboxone at this time. Pt is not interested in recovery resources or referrals, educated on local supports. Pt denies questions or concerns at this time.
[2022-07-31 10:02] VITALS: BP 127/79; PULSE 68; RESP 16; TEMP 36.9; O2SAT 98
--- NOTE | 2022-07-31 10:50 | MHC.CM.PN ---
JOHNNY 07/31/22 Male 41 DX OD cyclical vomiting Patient lives with . He is independent with all functional mobility. He declined the offer to document a HCP. The Recovery nurse has met with the patient. DP home self care, with Community resource info. Patient will arrange for a ride home.
--- NOTE | 2022-07-31 13:03 | HO.PM.IMPN ---
Subjective Subjective Date of Service: 07/31/22 Interval History: overdose, cyclic vomiting Review of Systems Seems awake alert, feels nauseated Denies any chest pain or shortness of breath or abdominal pain or fever chills. Physical Exam Vital Signs: Vital Signs: Last Vital Signs Temp 98.4 F 07/31/22 10:02 Pulse 68 07/31/22 10:02 Resp 16 07/31/22 10:02 BP 127/79 07/31/22 10:02 Pulse Ox 98 07/31/22 10:02 O2 Del Method Room Air 07/31/22 10:02 BMI result Body Mass Index 21.4 Appearance: Alert.? Oriented X3.? not in distress.? cvs: rrr, [id number] , no murmur res: clear to auscultation ,no rhonchii or wheezing abd: no rebound or guarding ,nt, bs present. ext pulses present , no cyanosis . neuro: axo3 , nonfocal. Objective Data Active Medications Acetaminophen (Acetaminophen 325 Mg Tablet) 650 mg PO Q6H PRN PRN Reason: Pain, Mild (Pain Scale 1-3) Lactated Ringer's (Lr) 1,000 mls @ 100 mls/hr IVCONT .Q10H [facility] Last Admin: 07/31/22 09:47 Dose: 100 mls/hr Documented By: ISRA Ondansetron HCl (Ondansetron Hcl 4 Mg/2 Ml Vial) 4 mg IVPUSH Q6H PRN PRN Reason: Nausea Oxycodone HCl (Oxycodone Hcl Immed Release 5 Mg Tablet) 5 mg PO Q6H PRN PRN Reason: Pain, Severe (Pain Scale 7-10) Pantoprazole Sodium (Pantoprazole Sodium 40 Mg/10 Ml Vial) 40 mg IVPUSH BID@0630,1630 [facility] Last Admin: 07/31/22 09:47 Dose: 40 mg Documented By: ISRA Sodium Chloride (0.9 % Sodium Chloride Flush 3 Ml Syringe) [address] [facility] Last Admin: 07/31/22 09:47 Dose: 3 ml Documented By: ISRA Labs 07/31/22 06:21 07/31/22 06:21 Labs: Laboratory Results - last 24 hr 07/30/22 07/31/22 07/31/22 20:56 06:21 06:21 MCV 83.0 MCH 28.3 MCHC 34.1 RDW 14.6 Plt Count 215 MPV 9.1 L Immature Gran % (Auto) 1.2 H Neut % (Auto) 64.5 Lymph % (Auto) 26.8 Gregory % (Auto) 6.3 Eos % (Auto) 0.9 Baso % (Auto) 0.3 Lymph # (Auto) 2.6 Gregory # (Auto) 0.6 Eos # (Auto) 0.1 Baso # (Auto) 0.0 Abs Immat Gran (auto) 0.12 H Absolute Neuts (auto) 6.3 Absolute Nucleated RBC 0.000 Nucleated RBC % (auto) 0.0 Anion Gap 12 9 L Estim Creat Clear Calc 105.9 112.3 Estimated GFR > 60 > 60 Random Glucose 230 H 87 Calcium 8.3 L D 8.8 D Total Bilirubin 0.8 Direct Bilirubin 0.2 AST 11 ALT 8 Alkaline Phosphatase 65 Total Protein 6.3 L Albumin 3.9 Lipase 22 Assessment and Plan (1) Cyclic vomiting syndrome: Status: Acute (2) Accidental heroin overdose: Status: Acute (3) Intractable vomiting: Status: Acute (4) Gastritis: Status: Acute Plan 41-year-old male with past medical history of IV drug use was in remission, relapsed today, history of cyclic vomiting syndrome presents the hospital with complaints of overdose and intractable vomiting as well as hematemesis ? accidental heroin overdose-? hemodynamically stable, received Narcan on admission seems patient alert awake and oriented x4 monitor respiratory status addiction consult intractable nausea vomiting-? likely secondary to cyclic vomiting syndrom continue ? IV fluids,antiemetics, monitor,give trial of clear liquids strongly advised to avoid marijuana the a help with his symptoms, patient understands hematemesis-? likely secondary to vomiting hemodynamically stable H&H stable ppi monitor H&H and morning ?DVT prophylaxis:? Early ambulation inaptient need : intractable nausea vomiting-need iv hydration,antiemetics, unable to tolerate po yet,hematemesis-need h/h monitering Time Spent With Patient Time: Total time managing care of this patient today ____ minutes. Quality Stroke Does the patient have a stroke diagnosis?: No VTE Prior VTE?: No VTE Risk Level:: Medical - low VTE Device Contraindication: Treatment Not Indicated VTE Drug Contraindication: N/A - Med Ordered
[2022-07-31 15:09] VITALS: BP 145/84; PULSE 64; RESP 18; TEMP 36.9; O2SAT 98
[2022-07-31] MEDS: ondansetron HCL 4 MG/2 ML VIAL IVPUSH (18:29)
[2022-07-31 19:54] VITALS: BP 140/90; PULSE 57; RESP 18; TEMP 36.4; O2SAT 98
[2022-07-31] MEDS: oxyCODONE HCl Immed Release 5 MG TABLET PO (20:26)
[2022-07-31] MEDS: Zolpidem Tartrate 5 MG TABLET PO (22:38)
[2022-08-01 03:33] VITALS: BP 148/81; PULSE 52; RESP 18; TEMP 37.2; O2SAT 98
[2022-08-01] MEDS: Lactated Ringers 1,000 ML 100 ML IVCONT (05:58)
[2022-08-01] MEDS: oxyCODONE HCl Immed Release 5 MG TABLET PO (06:24)
[2022-08-01] MEDS: Pantoprazole Sodium 40 MG/10 ML VIAL IVPUSH (06:25)
[2022-08-01 06:40] LABS: Hematocrit 37.9 % (42.0-52.0); Hemoglobin 12.8 g/dl (14.0-18.0)
[2022-08-01 07:01] LABS: Anion Gap 11 (12-20); Blood Urea Nitrogen 9 mg/dL (9-16); Calcium 8.9 mg/dL (8.4-10.2); Carbon Dioxide 27 mmol/L (22-29); Chloride 106 mmol/L (96-108); Creatinine Clr Calc Pharmacy 113.7; Estimated Glomerular Filt Rate > 60; Glucose Random 98 mg/dL (60-115); Potassium 3.5 mmol/L (3.3-5.1); Sodium 140 mmol/L (135-145)
[2022-08-01 07:13] VITALS: BP 137/93; PULSE 67; RESP 16; TEMP 37.4; O2SAT 99
--- NOTE | 2022-08-01 10:40 | MHC.CM.PN ---
Addendum entered by Ledy Keen 08/01/22 10:57: Patient has been seen by the recovery nurse. Patient is not interested in resources at this time. Original Note: Patient is discharged to home self care. He has arranged for transport home.
--- NOTE | 2022-08-01 11:36 | PM.DS ---
DS: Providers Provider Date of Service: 08/01/22 Date of admission: 07/30/22 23:25 Date of discharge: 08/01/22 Primary care physician: Chris Ordoñez MD Consults: 07/30/22 18:47 Consult to Care Team Stat Comment: Reason for consultation: od 08/01/22 11:25 Addiction Medicine Routine Consulting Provider: Addiction Covering Reason for consultation: heroine use Has provider been notified: No Attending physician on discharge: Dali Henriquez Discharging clinician: Dali Henriquez DS: Diagnosis Discharge Diagnosis (1) Cyclic vomiting syndrome: Status: Acute (2) Accidental heroin overdose: Status: Acute (3) Intractable vomiting: Status: Acute (4) Gastritis: Status: Acute DS: Summary Hospital Course Hospital Course: 41-year-old male with past medical history of cyclic vomiting as well as past history of IV drug use presents the hospital after overdosing on heroin.? Patient reports that last use was 10 months ago, he relapsed today.? Patient reports that he has been feeling very frustrated with his recurrent bouts of nausea and vomiting.? He has been having intractable nausea vomiting for the past 3 days, this occurs every several months, has been happening for the past 4 years.? As a result of this frustration he went and used heroin.? He currently has nausea, 1 episode of vomiting, but otherwise reports no shortness of breath, no chest pain, no urinary symptoms and no lower extremity dominant.? He states that he also noticed blood in his vomit this afternoon.? He does actively use marijuana, daily user. ?he otherwise has no headache, no change in vision, no urinary symptoms and no lower extremity edema.? On arrival to the ED patient hemodynamically stable with no significant abnormal vitals ?labs reviewed unremarkable ?patient will be admitted for further monitoring. Hospital course: Patient was admitted for intractable nausea vomiting, incidentally heroine overdose, hematemesis. Incidentalheroine overdose: Given Narcan and subsequently seems to be fine, seen by care team and addiction currently not interested in referrals. Patient says that he has naloxone at home. Intractable nausea vomiting possibly related to cyclic vomiting which probably related to marijuana use-improved with hydration, bowel rest, antiemetics. Patient strongly advised to abstain from marijuana. Hematemesis: Possible related to intractable nausea vomiting-possible Delmis-Harrison versus gastritis mild: H&H stable, no more hematemesis: Patient is to follow up with GI outpatient patient already has appointment, patient will go home with omeprazole. plan: Continue omeprazole, need outpatient GI workup patient already has appointment. Strongly advised to abstain from marijuana and heroin. Follow-up out patiently with PCP. Above management discussed the patient the lens he understand and in agreement of the plan, time spent 50 minute. Time Spent with Patient Time attestation: Total time managing care of this patient today ____ minutes. Discharge coordination time: Greater than 30 minutes Quality: Safe Use of Opioids Does Pt have an Active Cancer Diagnosis on the Problem List?: No Quality: Stroke Does the patient have a stroke diagnosis?: No Physical Exam Vital Signs: Vital Signs: Last Vital Signs Temp 99.3 F 08/01/22 07:13 Pulse 67 08/01/22 07:13 Resp 16 08/01/22 07:13 BP 137/93 H 08/01/22 07:13 Pulse Ox 99 08/01/22 07:13 O2 Del Method Room Air 08/01/22 07:13 BMI result Body Mass Index 21.4 Appearance: Alert.? Oriented X3.? not in distress.? cvs: rrr, [id number] , no murmur res: clear to auscultation ,no rhonchii or wheezing abd: no rebound or guarding ,nt, bs present. ext pulses present , no cyanosis . neuro: axo3 , nonfocal. DS: Data Data Completed and Pending Labs on day of discharge: Laboratory Results - last 24 hr 08/01/22 08/01/22 05:45 05:45 Hgb 12.8 L Hct 37.9 L Sodium 140 Potassium 3.5 Chloride 106 Carbon Dioxide 27 Anion Gap 11 L BUN 9 Creatinine 0.81 Estim Creat Clear Calc 113.7 Estimated GFR > 60 Random Glucose 98 Calcium 8.9 Discharge Plan Discharge Anticipated Discharge Date/Time: 08/01/22 11:31 Patient Disposition: Home, Self-Care Discharge Diagnosis: Heroine use , cyclic vomiting, hematemesis Referrals: Chris Ordoñez MD [Primary Care Provider] - 1 Week Discharge Medications: New omeprazole 20 mg capsule,delayed release(DR/EC) 20 mg PO BID Qty: 60 0RF Discharge Orders: Discharge Order (Routine); Ordered 08/01/22 Ordered By: Dali Henriquez Diet: Advance to usual diet Activity on Discharge: As tolerated Stand Alone Forms: Patient Portal Discharge page Care Plan Goals: Patient was admitted for intractable nausea vomiting, incidentally heroine overdose, hematemesis. Incidentalheroine overdose: Given Narcan and subsequently seems to be fine, seen by care team and addiction currently not interested in referrals. Patient says that he has naloxone at home. Intractable nausea vomiting possibly related to cyclic vomiting which probably related to marijuana use-improved with hydration, bowel rest, antiemetics. Patient strongly advised to abstain from marijuana. Hematemesis: Possible related to intractable nausea vomiting-possible Delmis-Harrison versus gastritis mild: H&H stable, no more hematemesis: Patient is to follow up with GI outpatient patient already has appointment, patient will go home with omeprazole. Health Concerns: As above. Plan of Treatment: As above. Assessment: As above. Patient Instructions: Polysubstance Abuse (ED), Cyclic Vomiting Syndrome (DC)
--- NOTE | 2022-08-01 11:47 | P.EN_ITS ---
Event Note Date of Service: 08/01/22 Event Note: Addiction consult placed for patient Please see customer account technician note dated 07/31/22 Time Spent With Patient Time: Total time managing care of this patient today ____ minutes.
--- NOTE | 2022-08-01 11:47 | PM.EVENT ---
Event Note Date of Service: 08/01/22 Event Note: Addiction consult placed for patient Please see carbonation equipment operator note dated 07/31/22 Time Spent With Patient Time: Total time managing care of this patient today ____ minutes.
== END 2022-08-01 13:02 | disposition home or self-care (01) ==
LOC: HO.ED 22:17 → HO.EDOVER 23:33 → HO.S3 07-31 07:55
PROVIDERS: Admitting Provider Internal Medicine; Emergency Provider Emergency Medicine; PCP Family Medicine; Visit Provider Internal Medicine
DX: F11.90 Opioid use, unspecified, uncomplicated (principal); T40.1X1A Poisoning by heroin, accidental (unintentional), initial encounter; Y92.9 Unspecified place or not applicable; R11.15 Cyclical vomiting syndrome unrelated to migraine; R11.2 Nausea with vomiting, unspecified; K29.70 Gastritis, unspecified, without bleeding; F17.200 Nicotine dependence, unspecified, uncomplicated; F12.90 Cannabis use, unspecified, uncomplicated
CPT/HCPCS: 36415; 80048; 80076; 83690; 85014; 85018; 85025; 96361; 96374; 96375; 99221; 99285; J2405; J2765

== ENCOUNTER 2022-08-14 11:06 | Outpatient (REF) | payer OTHER, SELFPAY ==
[2022-08-14 12:01] LABS: Hemoglobin 15.5 g/dl (14.0-18.0); Mean Corpuscular HGB Conc 33.7 g/dl (31.0-36.0); Mean Corpuscular Hemoglobin 28.4 pg (27.0-33.0); Mean Corpuscular Volume 84.4 fL (80.0-98.0); Mean Platelet Volume 8.8 fL (9.4-12.4); Platelet Count 336 X10*3/uL (160-400); Red Blood Count 5.45 X10*6/uL (4.60-5.80); Red Cell Distribution Width 15.2 % (11.0-16.0); White Blood Count 5.6 X10*3/uL (4.8-10.8)
[2022-08-14 13:36] LABS: Alanine Aminotransferase 16 U/L (0-40); Albumin Level 4.5 g/dL (3.5-5.0); Alkaline Phosphatase 88 U/L (39-117); Anion Gap 10 (12-20); Aspartate Amino Transferase 13 U/L (5-37); Bilirubin Total 0.7 mg/dL (0.0-1.0); Blood Urea Nitrogen 12 mg/dL (9-16); Calcium 10.2 mg/dL (8.4-10.2); Carbon Dioxide 29 mmol/L (22-29); Chloride 103 mmol/L (96-108); Estimated Glomerular Filt Rate > 60; Glucose Random 95 mg/dL (60-115); Potassium 4.5 mmol/L (3.3-5.1); Sodium 137 mmol/L (135-145); Total Protein 7.7 g/dL (6.5-8.0)
[2022-08-16 03:44] LABS: HBS Num1 > 1000.00 mIU/mL (0-7.99); HBc Num1 0.08 S/CO (0.00-0.79); HBsAGNum1 0.35 S/CO (0.00-0.99); HIV AB/AG Nonreactive (Nonreactive); Hepatitis B Core Antibody Nonreactive (Nonreactive); Hepatitis B Surface Antigen Negative (Negative); ~HepC Num1 12.92 S/CO (0.00-0.79); ~Hepatitis B Surface Antibody REACTIVE (Nonreactive); ~Hepatitis C Antibody Reactive (Nonreactive)
[2022-08-16 03:47] LABS: Hepatitis A Antibody IgG REACTIVE (Nonreactive); ~Hepatitis A Antibody IgG 6.79 S/CO (0.00-0.99)
== END 2022-08-14 11:07 | disposition home or self-care (01) ==
LOC: HO.LAB 11:06
PROVIDERS: PCP Family Medicine; Visit Provider Internal Medicine
DX: B18.2 Chronic viral hepatitis C (principal)
CPT/HCPCS: 36415; 80053; 85027; 86704; 86706; 86708; 86803; 87340; 87389; 99202

== ENCOUNTER 2022-08-16 08:51 | Outpatient (REF) | payer OTHER, SELFPAY ==
--- NOTE | ~2022-08-16 | FL_ITS ---
EXAMINATION: XR GI SERIES CLINICAL INFORMATION: Nausea COMPARISON: None available. TECHNIQUE: Upper GI was performed using thin and thick barium and effervescent granules FINDINGS: The esophagus is normal-appearing. No reflux or hernia is seen. There is delayed passage of oral contrast into the duodenum. The duodenal bulb appears slightly irregular in shape with fold thickening and question ulcer. Correlation with endoscopy recommended. The stomach and visualized small bowel are otherwise normal. FLUOROSCOPY TIME: 0.6 minutes DAP: 4.5 gerardo per centimeter squared. Total dose 14 mgy. 19 saved fluoroscopic images and 4 overhead images. FL/FL upper GI series IMPRESSION: Abnormal appearance to the duodenal bulb with irregular shape, fold thickening and question ulceration. Correlation with endoscopy recommended.
== END 2022-08-16 08:52 | disposition home or self-care (01) ==
LOC: HO.XRAY 08:51
PROVIDERS: PCP Family Medicine; Visit Provider Family Medicine
DX: R10.13 Epigastric pain (principal); R11.2 Nausea with vomiting, unspecified
CPT/HCPCS: 74240

== ENCOUNTER 2022-08-26 17:08 | Outpatient (REF) | payer OTHER, SELFPAY ==
[2022-08-28 16:24] LABS: HCV RNA PCR Qn <1.18 NOT DETECTED Log IU/mL (NOT DETECTED); HCV RNA PCR Qn <15 NOT DETECTED IU/mL (NOT DETECTED)
== END 2022-08-26 17:09 | disposition home or self-care (01) ==
LOC: HO.LAB 17:08
PROVIDERS: PCP Family Medicine; Visit Provider Internal Medicine
DX: B18.2 Chronic viral hepatitis C (principal)
CPT/HCPCS: 36415; 87522; 87902

== ENCOUNTER 2022-08-30 08:20 | Outpatient (REF) | payer OTHER, SELFPAY ==
--- NOTE | ~2022-08-30 | US_ITS ---
EXAMINATION: US ABDOMEN COMPLETE CLINICAL INFORMATION: Chronic viral hepatitis C. COMPARISON: None available. TECHNIQUE: Real-time imaging of the abdominal viscera. FINDINGS: PANCREAS: Normal. ABDOMINAL AORTA: The proximal, mid, and distal segments are normal in caliber. INFERIOR VENA CAVA: Visualized portions are normal. LIVER: The liver is normal in size. The liver contour is normal. Parenchymal echogenicity is normal. 2 echogenic lesions are seen in the right lobe, measure 1.1 x 1.1 x 1.0 cm and 1.0 x 1.2 x 0.9 cm. These likely represent hemangiomas. Question of slightly dilated intrahepatic bile ducts. GALLBLADDER: Normal. The gallbladder is physiologically distended without evidence of stones, sludge, polyps, wall thickening or pericholecystic fluid. COMMON BILE DUCT: Normal in caliber measuring 0.3 cm in diameter. RIGHT KIDNEY: Normal. No hydronephrosis. No renal calculi or focal parenchymal lesions. The kidney measures 11.1 cm in maximum dimension. LEFT KIDNEY: Normal. No hydronephrosis. No renal calculi or focal parenchymal lesions. The kidney measures 11.2 cm in maximum dimension. SPLEEN: Normal. The spleen measures 10.0 cm in maximum dimension. FREE FLUID: None. US/US abdomen complete IMPRESSION: 1. 2 echogenic lesions in the right lobe of the liver likely represent hemangiomas. 2. Question of slightly dilated intrahepatic bile ducts. CT scan could be obtained for further evaluation.
== END 2022-08-30 08:21 | disposition home or self-care (01) ==
LOC: HO.US 08:20
PROVIDERS: Visit Provider Internal Medicine
DX: B18.2 Chronic viral hepatitis C (principal)
CPT/HCPCS: 76700

== ENCOUNTER 2022-10-31 10:03 | Day surgery (SDC) | payer OTHER, SELFPAY ==
[2022-10-28 13:47] VITALS: BMI 21.1
--- NOTE | 2022-10-30 12:01 | HO.ANESPROP2 ---
HPI - Anesthesia Eval Consult details Narrative: 42yo M for Upper Endoscopy Hx IVDA PMFSH Active Problems Active Problems: All Active Problems (Updated 10/28/22 @ 13:36 by Ellie Stokes RN) Dilated bile duct (Acute) Liver lesion (Acute) Chronic hepatitis C (Acute) Cyclic vomiting syndrome (Acute) Gastritis (Acute) Intractable vomiting (Acute) Accidental heroin overdose (Acute) Past Medical History Medical History Cyclic vomiting syndrome IV drug user Surgical History Surgical History (Updated 10/28/22 @ 13:33 by Ellie Stokes RN) Hx of appendectomy Social History Social History (Updated 10/28/22 @ 13:36 by Ellie Stokes RN) Household Members: Spouse Housing: House Do you presently have visiting nurse or other home services: No Alcohol intake: never Patient Tobacco Use Status: Former Tobacco user Tobacco use type: Cigarette e-Cigarette/Vaping Use: Never Used Substance Use Type: Heroin and Marijuana service: No Current occupational status: employed Meds Allergies Allergy/AdvReac Type Severity Reaction Status Date / Time No Known Allergies Allergy Unknown Verified 08/14/22 11:15 Exam Exam Date and Time: October 30, 2022 1201 Height,Weight and Vital Signs: Height 5 ft 9 in Weight 64.864 kg Pertinent Lab Results Pertinent Lab Results: Laboratory Tests 08/14/22 11:56 WBC 5.6 Hgb 15.5 D Hct 46.0 D Plt Count 336 D Sodium 137 Potassium 4.5 D Chloride 103 Carbon Dioxide 29 BUN 12 Creatinine 0.82 Assessment and Plan Assessment Anesthesia Assessment: Chart Reviewed
[2022-10-31 10:54] VITALS: BP 133/91; PULSE 86; RESP 18; TEMP 36.7; O2SAT 100; BMI 23.6
--- NOTE | 2022-10-31 11:21 | P.OP_ITS ---
Operative Note Operative Note Date of Service: 10/31/22 Narrative: Procedure: Esophagogastroduodenoscopy Endoscopist: Francoise Loaiza MD Indication: Nausea and vomiting Anesthesia Provider: Dr Doreen Kim Anesthesia Type: MAC ?? EGD Procedure:?? The procedure, indications, preparation and potential complications were reviewed with the patient, who indicated understanding and gave written informed consent to proceed. A physical exam was performed. The endoscope was introduced through the mouth, and advanced to the second part of duodenum. The mucosa was carefully examined on slow withdrawal of the endoscope. The patient tolerated the procedure well. There were no immediate complications.? ? EGD Findings:? * Esophagus:? Normal mucosa noted in the entire esophagus. The Z line was at 36 cm and irregular to 35 cm. Cold forceps biopsies were taken to r/o Tabor's esophagus. Middle and lower esophagus forceps biopsies were obtained to rule out eosinophilic esophagitis. A medium sized hiatal hernia was noted with the diaphragmatic pinch at 40 cm. * Stomach:? Normal mucosa was noted in the stomach. Random cold forceps gastric biopsies were taken to rule out H Pylori infection. Retroflexion in the fundus showed Hill grade II hernia. * Duodenum:? Normal mucosa was noted in the whole of the examined duodenum. Cold forceps biopsies were taken from duodenal bulb and second portion of the duodenum to rule out celiac sprue. ? EGD Impressions:? * Irregular Z line (biopsy) * Hiatal hernia * Normal stomach (biopsy) * Normal duodenum (biopsy) ?? Recommendations:?? * Follow biopsy results. Our office will call or send a letter with results within 7-10 days. * Continue PPI therapy. * If biopsu confirms BE, will need surveillance based on presence of dysplasia. * If H pylori +, patient will be prescribed eradication therapy followed by test of cure. * Avoid NSAIDs. Above has been reviewed with the patient.
--- NOTE | 2022-10-31 11:21 | MHC.SHP ---
Pre-Procedural Eval Section A Date of Service: 10/31/22 Section B Chief Complaint: nausea,vomiting Relevant Social History: Other (specify) (IVDU) Present Medications: see Short Stay Collaborative assessment Medical History: No relevant PMH History of Previous Operations: No relevant previous surgery Allergies: Allergies Allergy/AdvReac Type Severity Reaction Status Date / Time No Known Allergies Allergy Unknown Verified 08/14/22 11:15 Review of Systems Review of Systems Comment: 10 point ROS negative Exam Exam Comment: Gen appear: No acute distress HEENT: no icterus Chest: No overt resp distress Abd: soft, nontender, nondistended Psych: Stable affect, answering questions appropriately Neuro: A/Ox3 noted to move all extremities spontaneously Ext: no peripheral edema Plan Diagnosis/Plan: Unchanged I have reviewed the history and physical and performed a pertinent physical examination on my patient. No changes have occurred unless specified. Time Spent With Patient Time: Total time managing care of this patient today ____ minutes.
[2022-10-31] MEDS: Lactated Ringers 1,000 ML 100 ML IVCONT (11:26)
--- NOTE | 2022-10-31 11:50 | HO.ANESPROP2 ---
[facility] Active Problems Active Problems: All Active Problems (Updated 10/28/22 @ 13:36 by Ellie Stokes RN) Dilated bile duct (Acute) Liver lesion (Acute) Chronic hepatitis C (Acute) Cyclic vomiting syndrome (Acute) Gastritis (Acute) Intractable vomiting (Acute) Accidental heroin overdose (Acute) Past Medical History Medical History Cyclic vomiting syndrome IV drug user Functional capacity: independent ambulation Family History Family history of problems with anesthesia: No Surgical History Surgical History Hx of appendectomy Social History Social History Household Members: Spouse Housing: House Do you presently have visiting nurse or other home services: No Alcohol intake: never Patient Tobacco Use Status: Former Tobacco user Quit Date: 1 year Tobacco use type: Cigarette e-Cigarette/Vaping Use: Never Used Use of substances other than those prescribed or required for medical reasons: Yes Substance Use Type: Heroin and Marijuana Are you DNR?: No Advance Directives: No Advance Directives Information Provided: Yes service: No Current occupational status: employed Meds Allergies Allergy/AdvReac Type Severity Reaction Status Date / Time No Known Allergies Allergy Unknown Verified 08/14/22 11:15 Active Medications: Current Medications Lactated Ringer's (Lr) 1,000 mls @ 100 mls/hr IVCONT .Q10H EMELY Last Admin: 10/31/22 11:26 Dose: 100 mls/hr Exam Exam Date and Time: October 31, 2022 1150 Height,Weight and Vital Signs: Height 5 ft 9 in Weight 72.575 kg Last Vital Signs Temp 98.1 F 10/31/22 10:54 Pulse 86 10/31/22 10:54 Resp 18 10/31/22 10:54 BP 133/91 H 10/31/22 10:54 Pulse Ox 100 10/31/22 10:54 O2 Del Method Room Air 10/31/22 10:54 Airway Mallampati Class: II TM Dist: >3cm Neck ROM: Full Heart: RRR Lungs: CTA Assessment and Plan Assessment Anesthesia Assessment: Anesthesia Plan Discussed and Smoking Cess. Discussed Final Anesthetic Review Family History of Problems with Anesthesia: No ASA Class: II Final Preanesthetic Review: Meds/Allgs Chart Reviewed, Consent Obtained/Reviewed and Anes Risks/Benef Reviewed Patient Risk: Low Procedure Risk: Low Anesthetic Plan Anesthetic Plan: MAC: Disposition: Standard PACU
[2022-10-31 12:02] VITALS: BP 151/76; PULSE 87; RESP 16; TEMP 36.8; O2SAT 97
--- NOTE | 2022-10-31 12:04 | HO.POSTANES ---
Post Anesthesia Evaluation Post Anesthesia Evaluation Date of Service: 10/31/22 Vital Signs: Vital Signs Temp Pulse Resp BP Pulse Ox O2 Del Method 10/31/22 10:54 98.1 F 86 18 133/91 H 100 Room Air Anesthesia: Monitored Mental Status: Awake Pain Control: Satisfactory Nausea/Vomiting: None Hydration: Adequate Anesthesia-Related Issues: No Anes. Related Issues
[2022-10-31 12:17] VITALS: BP 146/96; PULSE 77; RESP 18; TEMP 36.8; O2SAT 18
--- NOTE | 2022-10-31 13:37 | HO.POSTANES ---
Post Anesthesia Evaluation Post Anesthesia Evaluation Date of Service: 10/31/22 Vital Signs: Vital Signs Temp Pulse Resp BP Pulse Ox O2 Del Method 10/31/22 12:17 98.2 F 77 18 146/96 H 18 L 10/31/22 12:02 98.2 F 87 16 151/76 H 97 Room Air 10/31/22 10:54 98.1 F 86 18 133/91 H 100 Room Air Anesthesia: Monitored Mental Status: Awake Pain Control: Satisfactory Nausea/Vomiting: None Hydration: Adequate Anesthesia-Related Issues: No Anes. Related Issues
== END 2022-10-31 12:51 | disposition home or self-care (01) ==
PROVIDERS: PCP Family Medicine; Visit Provider Internal Medicine
PROC: 0DJ08ZZ Inspection of Upper Intestinal Tract, Via Natural or Artificial Opening Endoscopic (ICD-10-PCS; CPT 43235; principal; 2022-10-31 12:00)
DX: R11.15 Cyclical vomiting syndrome unrelated to migraine (principal); R19.7 Diarrhea, unspecified; K20.80 Other esophagitis without bleeding; K22.89 Other specified disease of esophagus; K31.A19 Gastric intestinal metaplasia without dysplasia, unspecified site; K44.9 Diaphragmatic hernia without obstruction or gangrene; B18.2 Chronic viral hepatitis C; F19.10 Other psychoactive substance abuse, uncomplicated; Z87.898 Personal history of other specified conditions; F11.90 Opioid use, unspecified, uncomplicated; Z87.891 Personal history of nicotine dependence
CPT/HCPCS: 43239; 88305; 88342

== ENCOUNTER → 2022-10-31 10:03 | Outpatient (BNV) | payer OTHER, SELFPAY | PROVIDERS: PCP Family Medicine; Visit Provider Internal Medicine | DX: R11.2 Nausea with vomiting, unspecified (principal); K44.9 Diaphragmatic hernia without obstruction or gangrene | CPT/HCPCS: 43239 ==

== ENCOUNTER 2022-11-11 08:06 | Outpatient (REF) | payer OTHER, SELFPAY ==
--- NOTE | ~2022-11-11 | MR_ITS ---
EXAMINATION: MR ABDOMEN WITHOUT AND WITH CONTRAST CLINICAL INFORMATION: Chronic liver disease. COMPARISON: Abdominal ultrasound 08/30/2022 TECHNIQUE: MR abdomen was performed without and with use of 7 mL intravenous Gadavist gadolinium contrast. Postcontrast images are performed in multiphase dynamic sequences. Imaging was performed in 3 planes. FINDINGS: LUNG BASES: No pleural or pericardial effusion. LIVER, GALLBLADDER, AND BILIARY TREE: The liver is normal in size, smooth in contour, and normal in signal. 7 mm and 10 mm T2 hyperintense T1 hypointense hepatic lesions demonstrating peripheral nodular enhancement on the postcontrast images. No biliary ductal dilatation is present. The gallbladder is unremarkable with no evidence of gallbladder wall thickening, or obvious pericholecystic inflammatory changes. PANCREAS: Normal contour. No ductal dilatation. SPLEEN: Not enlarged. ADRENAL GLANDS: No adrenal mass. KIDNEYS AND URETERS: The kidneys are symmetric in size and enhancement. No hydronephrosis. No perinephric stranding. GASTROINTESTINAL TRACT: No bowel obstruction. No abdominal ascites or fluid collection. ABDOMINAL WALL: No significant hernia is appreciated. LYMPH NODES: No bulky abdominal lymphadenopathy. VASCULAR: Normal caliber abdominal aorta. MR/MR abdomen wo/w con IMPRESSION: Small hepatic hemangiomas are suspected.
[2022-11-11] MEDS: gadobutroL 7.5 ML VIAL IVPUSH (08:49)
== END 2022-11-11 08:07 | disposition home or self-care (01) ==
LOC: HO.MRI 08:06
PROVIDERS: PCP Family Medicine; Visit Provider Internal Medicine
DX: K76.9 Liver disease, unspecified (principal); K83.8 Other specified diseases of biliary tract; R11.10 Vomiting, unspecified
CPT/HCPCS: 74183; A9585

== ENCOUNTER 2022-11-26 10:31 | Outpatient (AMB) | payer OTHER, SELFPAY ==
--- NOTE | 2022-11-26 10:39 | MHC.OFFVIS ---
Intake Vital Signs 11/26/22 10:46 Height 5 ft 9 in Weight 149 lb 14.629 oz BMI 22.1 BP 127/88 Blood Pressure Location Lt brachial Position Sitting Pulse 63 Intake Visit Reasons: s/p egd Intake Note: Luis Fernando presents in the office as a follow up EGD. CC: He states that he is doing great and everything has been good since his EGD. Allergies No Known Allergies Allergy (Unknown, Verified 08/14/22 11:15) HPI HPI Comments History of Present Illness Details This is a 42 y.o M with PMH of IVDU, chronic HCV, who presents to establish care for N/V. 08/14/22: Pt reports that for almost 4 years he has had at least one bout of intractable N/V that lasts 3-5 days associated with diarrhea. Not associated with abdominal pain, fevers, chills, sick contacts. Most recent episode was earlier this month, however had also had Narcan at that time to reverse accidental heroin OD at that time. Pt reports that there was no drug use hx prior to previous episodes. Has never had an endoscopy. Does not smoke. IVDU with recent relapse as above. Also has reported HCV hx however pt does not recall treatment. No NSAID use. No fam hx of stomach or esophageal ca. 10/31/22: EGD Irregular Z line (biopsy) Hiatal hernia Normal stomach (biopsy) Normal duodenum (biopsy) Diagnosis A. Duodenum, biopsy: Duodenal mucosa within normal limits; preserved villous architecture no increased intraepithelial lymphocytes seen. B. Stomach, random, biopsy: Gastric antral and body mucosa within normal limits; negative for Helicobacter pylori, intestinal metaplasia and dysplasia. C. Esophagus, lower, biopsy: Squamous and columnar junctional mucosa with mild chronic inflammation; negative for intraepithelial eosinophils, intestinal metaplasia and dysplasia. D. Esophagus, middle, biopsy: Squamous mucosa within normal limits; negative for inflammation (including intraepithelial eosinophils), fungal organisms, intestinal metaplasia and dysplasia. E. Gastroesophageal junction, irregular Z-line, biopsy: Squamous and columnar junctional mucosa with mild chronic inflammation and intestinal metaplasia consistent with Tabor's esophagus; negative for dysplasia (see comment). COMMENT (E): These findings are consistent with Tabor's esophagus if the biopsies were taken above the anatomic gastroesophageal junction. Clinical and endoscopic correlation is advised. 11/11/22: MRI LIVER, GALLBLADDER, AND BILIARY TREE: The liver is normal in size, smooth in contour, and normal in signal. 7 mm and 10 mm T2 hyperintense T1 hypointense hepatic lesions demonstrating peripheral nodular enhancement on the postcontrast images. No biliary ductal dilatation is present. The gallbladder is unremarkable with no evidence of gallbladder wall thickening, or obvious pericholecystic inflammatory changes. 11/26/22: No new gastrointestinal complaints. Has been taking omeprazole as prescribed. Results of EGD reviewed. Tabor's of GEJ without any dysplasia otherwise normal. We also reviewed MRI results which show small benign hemangiomas. No active HCV infection, although looks like was previously exposed given + Ab but spontaneously cleared. Pt does not report hx of antiviral treatment. PFSH Medical History Cyclic vomiting syndrome IV drug user Surgical History (Updated 11/26/22 @ 10:43 by YODIT Chung) History of esophagogastroduodenoscopy (EGD) Hx of appendectomy Social History Household Members: Spouse Housing: House Do you presently have visiting nurse or other home services: No Alcohol intake: never Patient Tobacco Use Status: Former Tobacco user Quit Date: 1 year Tobacco use type: Cigarette e-Cigarette/Vaping Use: Never Used Substance Use Type: Heroin and Marijuana service: No Current occupational status: employed Review of Systems Const All systems reviewed & are unremarkable except as noted in HPI and below Physical Exam Vital Signs: Last Vital Signs Pulse 63 11/26/22 10:46 BP 127/88 11/26/22 10:46 BMI result Body Mass Index 22.1 Gen appear: NAD HEENT: nonicteric, no cervical lymphadenopathy Chest: CTA CVS: Regular S1/S2 Abd: soft, nontender, nondistended, bowel sounds + Ext: no peripheral edema Neuro: A/Ox3, noted to move all extremities spontaneously Psych: interacting appropriately Assessment & Plan Assessment & Plan (1) Hemangioma: Code(s): D18.00 - Hemangioma unspecified site (2) Hepatitis C antibody positive in blood: Code(s): R76.8 - Other specified abnormal immunological findings in serum (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 BE: Small segment without dysplasia. Will need a repeat EGD in 5 years for surveillance. (can be done with colo as will be due for CRC screening by then) Otherwise pt to cont omeprazole 20mg PO once daily. 2. Hemangiomas: No further surveillance needed given size. 3. HCV Ab + but no evidence of chronic infection. Viral load negative. Follow up in GI office PRN. Medications: New omeprazole 20 mg PO DAILY 90 days 90 caps 2RF Coding Level of Care Code Est Pt Level 4 (14999) Diagnoses Hemangioma D18.00 Hepatitis C antibody positive in blood R76.8 Tbaor esophagus K22.70
[2022-11-26 10:46] VITALS: BP 127/88; PULSE 63; BMI 22.1
== END 2022-11-26 13:49 | disposition home or self-care (01) ==
PROVIDERS: PCP Family Medicine; Visit Provider Internal Medicine
DX: D18.00 Hemangioma unspecified site (principal); R76.8 Other specified abnormal immunological findings in serum; K22.70 Barrett's esophagus without dysplasia
CPT/HCPCS: 99214

== ENCOUNTER → 2022-11-26 10:31 | Outpatient (BNVA) | payer OTHER, SELFPAY | PROVIDERS: PCP Family Medicine; Visit Provider Internal Medicine | DX: K22.70 Barrett's esophagus without dysplasia (principal); R76.8 Other specified abnormal immunological findings in serum; D18.00 Hemangioma unspecified site; Z98.890 Other specified postprocedural states | CPT/HCPCS: 99212 ==

== ENCOUNTER 2024-01-29 12:14 | Outpatient (REF) | payer OTHER, SELFPAY ==
[2024-01-29 13:32] LABS: Alanine Aminotransferase 13 U/L (0-40); Aspartate Amino Transferase 17 U/L (5-37)
== END 2024-01-29 12:15 | disposition home or self-care (01) ==
LOC: HO.LAB 12:14
PROVIDERS: PCP Family Medicine; Visit Provider Family Medicine
DX: Z86.19 Personal history of other infectious and parasitic diseases (principal)
CPT/HCPCS: 36415; 84450; 84460

== ENCOUNTER 2024-05-14 08:17 | Outpatient (REF) | payer OTHER, SELFPAY ==
[2024-05-20 15:14] LABS: Testosterone, Total 513 ng/dL (250-1100)
== END 2024-05-14 08:18 | disposition home or self-care (01) ==
LOC: HO.LAB 08:17
PROVIDERS: PCP Family Medicine; Visit Provider Family Medicine
DX: N52.9 Male erectile dysfunction, unspecified (principal); R53.83 Other fatigue
CPT/HCPCS: 36415; 84403

== ENCOUNTER 2024-11-04 15:25 | Outpatient (AMB) | payer OTHER, SELFPAY ==
--- NOTE | 2024-11-04 15:39 | MHC.OFFVIS ---
Intake Visit Reasons: erectile dysfunction Intake Note: Patient is present for ERECTILE DYSFUNCTION Urology Medication:NONE Antibiotic Allergy:NONE Blood Thinner:NONE Necktie Centralizing Machine Operator Required: No Allergies No Known Allergies Allergy (Unknown, Verified 11/04/24 16:04) Medication List - Last Reconciled 11/04/24 by GENESIS Zelaya omeprazole 20 mg PO DAILY 90 days HPI Comments Details: Luis Fernando Valdez is a very pleasant 44-year-old male patient of Dr. Ordoñez. He has a past medical history of cyclic vomiting and previous IV drug abuse. He presents to the office today as a new patient for erectile dysfunction. In discussion with the patient today he reports noting episodes of erectile dysfunction initially started 18 months ago however feels initially symptoms were intermittent and infrequent however over the last 4 months feels he has had more episodes of erectile dysfunction. He is able to obtain an erection however feels maintaining erection that is adequate for penetration is difficult. In review of patient's chart it does appear his testosterone was ordered and performed. These results were reviewed and communicated with the patient today. 05/11 513. When asked he does report smoking recreational marijuana daily. He otherwise denies any previous trauma. He does report a previous history of drug abuse however has been in remission for almost 2 years. We did discussed at length potential causes of ED as well as further treatment options and risks and benefits of these treatment options. He otherwise denies any bothersome urinary issues. He denies urinary urgency, urinary frequency, incontinence, nocturia, hematuria, dysuria, foul smelling urine, changes to urinary stream, flank pain, fever, and or chills. He is happy with his current voiding parameters. All questions were answered. He otherwise offers no other issues or concerns at this time. [facility] Medical History Cyclic vomiting syndrome IV drug user Surgical History (Updated 11/26/22 @ 10:43 by YODIT Chung) History of esophagogastroduodenoscopy (EGD) Hx of appendectomy Social History Household Members: Spouse Housing: House Do you presently have visiting nurse or other home services: No Alcohol intake: never Patient Tobacco Use Status: Former Tobacco user Tobacco use type: Cigarette e-Cigarette/Vaping Use: Never Used Substance Use Type: Heroin and Marijuana service: No Current occupational status: employed Review of Systems Const All systems reviewed & are unremarkable except as noted in HPI and below Physical Exam Const General: cooperative, healthy appearing, comfortable, no acute distress, well developed, alert and awake Orientation/consciousness: patient oriented x3 Limitations: no limitations HEENT Head: Yes normal to inspection, Yes normocephalic and Yes atraumatic Ears: hearing grossly normal bilaterally Eyes General: appearance normal, both eyes and all related structures Neck Neck: Yes normal visual inspection and Yes trachea midline Chest Chest palpation & inspection: normal inspection of the chest Resp Effort & Inspection: normal respiratory effort and able to speak in complete sentences Cardio Rate: regular rate GI Inspection: Yes normal to inspection General: Yes no CVA tenderness Back/Spine/Pelvis Back: no CVA tenderness Skin General skin exam: no rashes or lesions noted Neuro General: patient oriented x3 Extrem General: Yes normal to inspection Psych Appearance: grossly normal and well kempt Mental Status: mental status grossly normal Speech and movement: Normal speech and movement present and Clear speech present Affect: normal affect Attitude: cooperative Thought process: Normal thought process present Thought content: Normal thought content present Insight: Fair insight present (Psych) Judgement: Fair judgement present (Psych) Assessment & Plan Assessment & Plan (1) Erectile dysfunction: Code(s): N52.9 - Male erectile dysfunction, unspecified Category: Medical Plan Unable to obtain urine for urinalysis today. We did discussed at length potential causes of ED as well as further treatment options and risks and benefits of these treatment options. All questions were answered. He currently denies any bothersome urinary issues or concerns. He reports be happy with current voiding parameters. We did discuss importance of lifestyle modifications to assist with ED as well as overall health and well-being. Will obtain PSA, LH, FSH, prolactin, testosterone, free testosterone, and estradiol for further assessment evaluation. Follow-up in 1-3 months with labs to be completed prior; or sooner with any issues, concerns, and or questions. Orders: Orders Prolactin Today N52.9 - Male erectile dysfunction, unspecified Testosterone, Free/Total Today N52.9 - Male erectile dysfunction, unspecified Estradiol Ultra Sensitive Today N52.9 - Male erectile dysfunction, unspecified Prostate Specific Antigen Today N52.9 - Male erectile dysfunction, unspecified Follicle Stimulating Hormone Today N52.9 - Male erectile dysfunction, unspecified Lutenizing Hormone Today N52.9 - Male erectile dysfunction, unspecified Sex Hormone Binding Globulin Today N52.9 - Male erectile dysfunction, unspecified Patient Instructions: The patient had an opportunity to ask questions regarding the treatment plan. All questions were answered. Physical exam, labs, and imaging were discussed and reviewed in detail. As well as risks, benefits, and discussion of treatment choices. No major barriers to understanding were identified. The patient expressed understanding and agreement with the above treatment plan. The patient was made aware they should contact our office by phone for worsening of their current condition, the appearance of new symptoms, or with any questions or concerns. Compliance is encouraged with any medications and follow up testing that is ordered. It is a privilege to be allowed the opportunity to participate in? your urological care.? Again, if you have any questions or concerns If you have any questions or concerns please do not hesitate to contact me. The office is [phone]. This note is constructed using voice recognition software. While every effort has been made to ensure accuracy pharmaceutical representative errors may have been included. Yours sincerely, GENESIS Zelaya Coding Level of Care Code New Pt Level 3 (36862) Diagnoses Erectile dysfunction N52.9
--- OUTSIDE RECORDS SUMMARY | 2024-11-04 16:50 | XMS_ITS | Clinical Summary ---
Author Organization [employer] Address [address] [place] [address] [address] [place] [address] Care Team Providers Care Carboy Filler Name Role Phone Unavailable Primary Care Provider Unavailabl e Social History Tobacco Use Types Packs/Day Years Used Date Smoking Tobacco: Never Assessed Comments Unknown Sex and Gender Information Value Date Recorded Sex Assigned at Female 02/06/2024 10:27 AM EST Legal Sex Male 10:21 AM EDT Gender Identity Female 02/06/2024 10:27 AM EST Sexual Orientation Not on file Plan of Treatment Health Maintenance Due Date Last Done Comments Depression Screening 1982 Lipid Panel 1982 Disability Screening 1982 Alcohol/Substance Use Screening 1994 Tobacco Screening 1994 Family Planning (PISQ) 1997 HPV Vaccines (1 - 3-dose series) 1997 DTaP/Tdap/Td Vaccines (1 - Tdap) 2001 Hepatitis B Vaccines (1 of 3 - 19+ 3-dose series) 2001 Pap Smear 08/08/2003 Cervical Cancer Screening 2012 HPV/Cotest 2012 Mammogram 2022 COVID-19 Vaccine (1 - 2023-2 5 season) 2024 Influenza Vaccine (#1) 2024 Zoster Vaccines (1 of 2) 2032 RSV Patients and Pa tients Aged 60 years or older (1 - 1-dose 75+ series) 2057 HIB Vaccines Aged Out No longer eligi ble based on patient's age to complete this topic Hepatitis A Vaccines Aged Out No long er eligible based on patient's age to complete this topic IPV Vaccines Aged Out No longer eligi ble based on patient's age to complete this topic Meningococcal B Vaccine Aged Out No l onger eligible based on patient's age to complete this topic Meningococcal Vaccine Aged Out No romeo césar eligible based on patient's age to complete this topic Pneumococcal Vaccine: Pediat rics (0 to 5 Years) and At-Risk Patients (6 to 49) Years Aged Out No longer eligible b ased on patient's age to complete this topic RSV under 20 months Aged Out No longe r eligible based on patient's age to complete this topic Rotavirus Vaccines Aged Out No longer eligible based on patient's age to complete this topic
== END 2024-11-04 16:13 | disposition home or self-care (01) ==
LOC: HO.HUSH 15:26
PROVIDERS: PCP Family Medicine; Visit Provider Nurse Practitioner Family
DX: N52.9 Male erectile dysfunction, unspecified (principal)
CPT/HCPCS: 99203

== ENCOUNTER → 2024-11-04 15:25 | Outpatient (BNVA) | payer OTHER, SELFPAY | PROVIDERS: PCP Family Medicine; Visit Provider Nurse Practitioner Family | DX: N52.9 Male erectile dysfunction, unspecified (principal) | CPT/HCPCS: 99202 ==

== ENCOUNTER 2024-12-31 07:28 | Outpatient (REF) | payer OTHER, SELFPAY ==
--- OUTSIDE RECORDS SUMMARY | 2024-12-31 07:31 | XMS_ITS | Clinical Summary ---
Author Organization [employer] Address [address] [place] [address] [address] [place] [address] Care Team Providers Care Director Of Collections And Archives Name Role Phone Unavailable Primary Care Provider [...]
[2024-12-31 09:26] LABS: Prostate Specific Antigen 0.62 ng/mL (<0.05-4.0)
[2025-01-01 07:18] LABS: Follicle Stimulating Hormone 5.0 mIU/mL (1.4-12.8)
[2025-01-04 18:43] LABS: Testosterone, Free 67.8 pg/mL (35.0-155.0)
[2025-01-07 04:44] LABS: Estradiol Ultra Sensitive 15 pg/mL (< OR = 29)
== END 2024-12-31 07:29 | disposition home or self-care (01) ==
LOC: HO.LAB 07:28
PROVIDERS: PCP Physician Assistant; Visit Provider Nurse Practitioner Family
DX: N52.9 Male erectile dysfunction, unspecified (principal)
CPT/HCPCS: 36415; 82670; 83001; 83002; 84146; 84153; 84270; 84402; 84403